=== PATIENT | female | born 2000 | race Caucasian/White ===

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

== ENCOUNTER 2020-02-06 11:43 | Emergency (ER) | payer OTHER ==
--- NOTE | 2020-02-06 12:14 | ED ---
General Adult HPI - General Chief complaint: Psychiatric Symptoms Stated complaint: Depressed Time Seen by Provider: 02/06/20 11:52 Source: patient, RN notes reviewed, old records reviewed Mode of arrival: ambulatory Limitations: no limitations - History of Present Illness Initial comments: 19-year-old female presenting with depression and anxiety. She had recent loss of her mother in December and has been past with caring for her younger brothers. She has had increased depression since this time as well as anxiety. She called her primary care physician who recommended she present to the emergency department for evaluation. She is not suicidal. She is not homicidal. She is struggling with this recent loss. No attempts at self-harm. - Related Data Home Medications Medication Instructions Recorded Confirmed FLUoxetine HCL [PROzac] 20 mg PO HS 09/29/14 02/06/20 metFORMIN HCL ER [Glucophage Xr] 500 mg PO HS 01/02/19 02/06/20 Previous Rx's Medication Instructions Recorded ALPRAZolam [Xanax] 0.5 mg PO BID PRN #6 tablet 02/06/20 Allergies Allergy/AdvReac Type Severity Reaction Status Date / Time sertraline HCl [From Zoloft] Allergy Rash/Hives/ Verified 02/06/20 12:45 SOB Review of Systems ROS Statement: Those systems with pertinent positive or pertinent negative responses have been documented in the HPI. ROS Other: All systems not noted in ROS Statement are negative. Past Medical History Past Medical History: Asthma, GERD/Reflux, Sleep Apnea/CPAP/BIPAP Additional Past Medical History / Comment(s): bladder cyst -polycystic ovarian syndrome-ON METFORMIN History of Any Multi-Drug Resistant Organisms: MRSA Date of last positivie culture/infection: 2012 MDRO Source:: right leg Past Surgical History: Adenoidectomy, Tonsillectomy Additional Past Surgical History / Comment(s): ovarian cyst, pain procedures Past Anesthesia/Blood Transfusion Reactions: Postoperative Nausea & Vomiting (PONV) Past Psychological History: ADD/ADHD, Anxiety, Depression Smoking Status: Never smoker Past Alcohol Use History: None Reported Past Drug Use History: None Reported - Past Family History Father Family Medical History: Diabetes Mellitus, Eye Disorder, Hyperlipidemia Mother Family Medical History: Asthma, Hypertension, Pneumonia, Thyroid Disorder Additional Family Medical History / Comment(s): Anxiety, depression Brother(s) Family Medical History: Asthma Additional Family Medical History / Comment(s): 2 brothers with asthma General Exam Limitations: no limitations General appearance: alert, in no apparent distress Head exam: Present: atraumatic, normocephalic Eye exam: Present: normal appearance, PERRL ENT exam: Present: normal exam Neck exam: Present: normal inspection. Absent: tenderness, meningismus Respiratory exam: Present: normal lung sounds bilaterally. Absent: respiratory distress, wheezes Cardiovascular Exam: Present: regular rate, normal rhythm GI/Abdominal exam: Present: soft. Absent: distended, tenderness Extremities exam: Present: normal inspection, normal capillary refill Neurological exam: Present: alert, oriented X3, CN II-XII intact. Absent: motor sensory deficit Psychiatric exam: Present: depressed, flat affect. Absent: suicidal ideation Skin exam: Present: warm, dry, intact Course Vital Signs 02/06/20 02/06/20 11:48 13:24 Temperature 98.5 F Pulse Rate 98 Respiratory 16 18 Rate Blood Pressure 145/79 O2 Sat by Pulse 100 Oximetry Medical Decision Making - Medical Decision Making 19-year-old with anxiety, depression after recent loss. I did offer EPS evaluation, patient requests resources and some medication to help her anxiety. She is not suicidal. She's given resources in the emergency department for outpatient follow-up as well as a short course of anti-anxiety medication. She does have follow-up with her primary care physician and will return with worsen ing or changing symptoms. - Lab Data Lab Results 02/06/20 Range/Units 12:25 Urine Opiates Screen Not Detected (NotDetected) Ur Oxycodone Screen Not Detected (NotDetected) Urine Methadone Screen Not Detected (NotDetected) Ur Propoxyphene Screen Not Detected (NotDetected) Ur Barbiturates Screen Not Detected (NotDetected) U Tricyclic Antidepress Not Detected (NotDetected) Ur Phencyclidine Scrn Not Detected (NotDetected) Ur Amphetamines Screen Not Detected (NotDetected) U Methamphetamines Scrn Not Detected (NotDetected) U Benzodiazepines Scrn Not Detected (NotDetected) Urine Cocaine Screen Not Detected (NotDetected) U Marijuana (THC) Screen Not Detected (NotDetected) Disposition Clinical Impression: Acute anxiety, Depression, Adjustment disorder Disposition: HOME SELF-CARE Condition: Fair Instructions (If sedation given, give patient instructions): Anxiety (ED), Stress (ED) Additional Instructions: Please follow up with mobile crisis, please return to the emergency department with worsening or changing symptoms. Prescriptions: ALPRAZolam [Xanax] 0.5 mg PO BID PRN #6 tablet PRN Reason: Anxiety Is patient prescribed a controlled substance at d/c from ED?: No Referrals: Adama Valles MD [Primary Care Provider] - 1-2 days Time of Disposition: 14:46
[2020-02-06 13:01] LABS: Amphetamine Screen,Urine Not Detected (NotDetected); Barbiturate Screen,Urine Not Detected (NotDetected); Benzodiazepines Screen,Urine Not Detected (NotDetected); Cocaine Screen,Urine Not Detected (NotDetected); Methadone Screen, Urine Not Detected (NotDetected); Opiate Screen,Urine Not Detected (NotDetected); Oxycodone Screen, Urine Not Detected (NotDetected); Phencyclidine Screen,Urine Not Detected (NotDetected); Tricyclic Antidepressant,Urine Not Detected (NotDetected); Urn Cannabinoid Scrn Not Detected (NotDetected)
[2020-02-06 13:25] VITALS: RESP 18
[2020-02-06 15:37] VITALS: BP 138/79; PULSE 89; TEMP 97.9
== END 2020-02-06 15:30 | disposition home or self-care (01) ==
LOC: EC 11:43
DX: F43.22 Adjustment disorder with anxiety (principal); F32.9 Major depressive disorder, single episode, unspecified; E28.2 Polycystic ovarian syndrome; G47.30 Sleep apnea, unspecified; Z79.84 Long term (current) use of oral hypoglycemic drugs; Z79.899 Other long term (current) drug therapy; Z88.8 Allergy status to other drugs, medicaments and biological substances; Z99.89 Dependence on other enabling machines and devices; Z98.890 Other specified postprocedural states; Z86.14 Personal history of Methicillin resistant Staphylococcus aureus infection
CPT/HCPCS: 80306; 82075; 99284

== ENCOUNTER 2020-03-20 12:58 | Emergency (ER) | payer OTHER ==
[2020-03-20] MEDS ORDERED: MAG HYDROX/AL HYDROX/SIMETH 30 ML, HYOSCYAMINE ELIXIR 10 ML PO STA ×2 (13:37)
[2020-03-20] MEDS ORDERED: SODIUM CHLORIDE 0.9% 500 ML 500 ML IV STA (13:37)
[2020-03-20] MEDS ORDERED: FAMOTIDINE 20 MG/2 ML VIAL IV STA (13:37)
[2020-03-20] MEDS ORDERED: SODIUM CHLORIDE 0.9% 1,000 ML IV STA (13:37)
[2020-03-20] MEDS ORDERED: METOCLOPRAMIDE 5 MG/ML 2 ML VIAL IVP STA (13:37)
[2020-03-20] MEDS ORDERED: diphenhydrAMINE 50 MG/ML 1 ML VIAL IVP STA (13:37)
--- NOTE | 2020-03-20 14:10 | ED ---
General Adult HPI - General Chief complaint: Nausea/Vomiting/Diarrhea Stated complaint: NVD Time Seen by Provider: 03/20/20 13:17 Source: patient, RN notes reviewed Mode of arrival: ambulatory Limitations: no limitations - History of Present Illness Initial comments: 19-year-old female presents emergency Department with chief complaint of abdominal discomfort, nausea or diarrhea. Patient states been sick for last week she has ongoing GERD symptoms in which she only takes Tums for. Patient states she used to be on omeprazole but discontinued a while back. Patient denies any chance . Denies any dysuria she states the diarrhea is very mild no melena hematochezia. Denies fevers or chills she states she has some burning sensation in her upper abdomen worse when she can waking up in the morning. - Related Data Home Medications Medication Instructions Recorded Confirmed FLUoxetine HCL [PROzac] 20 mg PO HS 09/29/02/06/20 metFORMIN HCL ER [Glucophage Xr] 500 mg PO HS 01/02/19 02/06/20 Previous Rx's Medication Instructions Recorded ALPRAZolam [Xanax] 0.5 mg PO BID PRN #6 tablet 02/06/20 Omeprazole [PriLOSEC] 40 mg PO DAILY #14 cap 03/20/20 Ondansetron Odt [Zofran Odt] 4 mg PO Q8HR PRN #10 tab 03/20/20 Allergies Allergy/AdvReac Type Severity Reaction Status Date / Time sertraline HCl [From Zoloft] Allergy Rash/Hives/ Verified 03/20/20 13:14 SOB Review of Systems ROS Statement: Those systems with pertinent positive or pertinent negative responses have been documented in the HPI. ROS Other: All systems not noted in ROS Statement are negative. Past Medical History Past Medical History: Asthma, GERD/Reflux, Sleep Apnea/CPAP/BIPAP Additional Past Medical History / Comment(s): bladder cyst -polycystic ovarian syndrome-ON METFORMIN, History of Any Multi-Drug Resistant Organisms: MRSA Date of last positivie culture/infection: 2012 MDRO Source:: right leg Past Surgical History: Adenoidectomy, Tonsillectomy Additional Past Surgical History / Comment(s): ovarian cyst, pain procedures, Past Anesthesia/Blood Transfusion Reactions: Postoperative Nausea & Vomiting (PONV) Past Psychological History: ADD/ADHD, Anxiety, Depression Smoking Status: Never smoker Past Alcohol Use History: None Reported Past Drug Use History: None Reported - Past Family History Father Family Medical History: Diabetes Mellitus, Eye Disorder, Hyperlipidemia Mother Family Medical History: Asthma, Hypertension, Pneumonia, Thyroid Disorder Additional Family Medical History / Comment(s): Anxiety, depression Brother(s) Family Medical History: Asthma Additional Family Medical History / Comment(s): 2 brothers with asthma General Exam Limitations: no limitations General appearance: alert, in no apparent distress Head exam: Present: atraumatic, normocephalic, normal inspection Eye exam: Present: normal appearance, PERRL, EOMI. Absent: scleral icterus, conjunctival injection, periorbital swelling ENT exam: Present: normal exam, normal oropharynx, mucous membranes moist Neck exam: Present: normal inspection, full ROM. Absent: tenderness, meningismus, lymphadenopathy Respiratory exam: Present: normal lung sounds bilaterally. Absent: respiratory distress, wheezes, rales, rhonchi, stridor Cardiovascular Exam: Present: regular rate, normal rhythm, normal heart sounds. Absent: systolic murmur, diastolic murmur, rubs, gallop, clicks GI/Abdominal exam: Present: soft, tenderness (Mild epigastric), normal bowel sounds. Absent: distended, guarding, rebound, rigid Back exam: Absent: CVA tenderness (R), CVA tenderness (L) Neurological exam: Present: alert, oriented X3 Skin exam: Present: warm, dry, intact, normal color. Absent: rash Course Vital Signs 03/20/20 13:10 Temperature 98.9 F Pulse Rate 81 Respiratory 18 Rate Blood Pressure 144/100 O2 Sat by Pulse 98 Oximetry Medical Decision Making - Medical Decision Making 19-year-old female presented for GERD, nausea abdominal pain. Patient labs unremarkable. Patient is improved after antiemetics and GI cocktail. Patient discharged in stable condition return parameters were discussed. - Lab Data Result diagrams: 03/20/20 14:07 03/20/20 14:07 Lab Results 03/20/20 03/20/20 03/20/20 Range/Units 14:07 14:07 14:07 WBC 9.3 (4.0-11.0) k/uL RBC 4.33 (3.80-5.40) m/uL Hgb 13.1 (11.4-16.0) gm/dL Hct 39.9 (34.0-46.0) % MCV 92.1 (80.0-100.0) fL MCH 30.2 (25.0-35.0) pg MCHC 32.8 (31.0-37.0) g/dL RDW 13.8 (11.5-15.5) % Plt Count 361 (150-450) k/uL Neutrophils % 81 % Lymphocytes % 13 % Monocytes % 3 % Eosinophils % 2 % Basophils % 1 % Neutrophils # 7.6 (1.3-7.7) k/uL Lymphocytes # 1.2 (1.0-4.8) k/uL Monocytes # 0.3 (0-1.0) k/uL Eosinophils # 0.2 (0-0.7) k/uL Basophils # 0.1 (0-0.2) k/uL Sodium (137-145) mmol/L Potassium (3.5-5.1) mmol/L Chloride (98-107) mmol/L Carbon Dioxide (22-30) mmol/L Anion Gap mmol/L BUN (7-17) mg/dL Creatinine (0.52-1.04) mg/dL Est GFR (CKD-EPI)AfAm (>60 ml/min/1.73 sqM) Est GFR (CKD-EPI)NonAf (>60 ml/min/1.73 sqM) Glucose (74-99) mg/dL Calcium (8.4-10.2) mg/dL Total Bilirubin (0.2-1.3) mg/dL AST (14-36) U/L ALT (4-34) U/L Alkaline Phosphatase (38-126) U/L Total Protein (6.3-8.2) g/dL Albumin (3.5-5.0) g/dL Lipase (23-300) U/L Urine Color Yellow Urine Appearance Clear (Clear) Urine pH 5.5 (5.0-8.0) Ur Specific [place] 1.022 (1.001-1.035) Urine Protein Negative (Negative) Urine Glucose (UA) Negative (Negative) Urine Ketones Negative (Negative) Urine Blood Negative (Negative) Urine Nitrite Negative (Negative) Urine Bilirubin Negative (Negative) Urine Urobilinogen <2.0 (<2.0) mg/dL Ur Leukocyte Esterase Negative (Negative) Urine HCG, Qual Not Detected (Not Detectd) 03/20/20 Range/Units 14:07 WBC (4.0-11.0) k/uL RBC (3.80-5.40) m/uL Hgb (11.4-16.0) gm/dL Hct (34.0-46.0) % MCV (80.0-100.0) fL MCH (25.0-35.0) pg MCHC (31.0-37.0) g/dL RDW (11.5-15.5) % Plt Count (150-450) k/uL Neutrophils % % Lymphocytes % % Monocytes % % Eosinophils % % Basophils % % Neutrophils # (1.3-7.7) k/uL Lymphocytes # (1.0-4.8) k/uL Monocytes # (0-1.0) k/uL Eosinophils # (0-0.7) k/uL Basophils # (0-0.2) k/uL Sodium 139 (137-145) mmol/L Potassium 4.9 (3.5-5.1) mmol/L Chloride 108 H (98-107) mmol/L Carbon Dioxide 24 (22-30) mmol/L Anion Gap 7 mmol/L BUN 10 (7-17) mg/dL Creatinine 0.49 L (0.52-1.04) mg/dL Est GFR (CKD-EPI)AfAm >90 (>60 ml/min/1.73 sqM) Est GFR (CKD-EPI)NonAf >90 (>60 ml/min/1.73 sqM) Glucose 86 (74-99) mg/dL Calcium 9.1 (8.4-10.2) mg/dL Total Bilirubin 0.7 (0.2-1.3) mg/dL AST 40 H (14-36) U/L ALT 38 H (4-34) U/L Alkaline Phosphatase 68 (38-126) U/L Total Protein 7.3 (6.3-8.2) g/dL Albumin 4.1 (3.5-5.0) g/dL Lipase 96 (23-300) U/L Urine Color Urine Appearance (Clear) Urine pH (5.0-8.0) Ur Specific [place] (1.001-1.035) Urine Protein (Negative) Urine Glucose (UA) (Negative) Urine Ketones (Negative) Urine Blood (Negative) Urine Nitrite (Negative) Urine Bilirubin (Negative) Urine Urobilinogen (<2.0) mg/dL Ur Leukocyte Esterase (Negative) Urine HCG, Qual (Not Detectd) Disposition Clinical Impression: GERD (gastroesophageal reflux disease), Abdominal pain Disposition: HOME SELF-CARE Condition: Stable Instructions (If sedation given, give patient instructions): Abdominal Pain (ED) Additional Instructions: Please return to the Emergency Department if symptoms worsen or any other con cerns. Prescriptions: Omeprazole [PriLOSEC] 40 mg PO DAILY #14 cap Ondansetron Odt [Zofran Odt] 4 mg PO Q8HR PRN #10 tab PRN Reason: Nausea Is patient prescribed a controlled substance at d/c from ED?: No Referrals: Adama Valles MD [Primary Care Provider] - 1-2 days Time of Disposition: 14:53
[2020-03-20 14:22] LABS: Basophils # (A) 0.1 k/uL (0-0.2); Basophils % (A) 1 %; Eosinophils # (A) 0.2 k/uL (0-0.7); Eosinophils % (A) 2 %; HCT 39.9 % (34.0-46.0); HGB 13.1 gm/dL (11.4-16.0); Lymphocytes # (A) 1.2 k/uL (1.0-4.8); Lymphocytes % (A) 13 %; MCH 30.2 pg (25.0-35.0); MCHC 32.8 g/dL (31.0-37.0); MCV 92.1 fL (80.0-100.0); Monocytes # (A) 0.3 k/uL (0-1.0); Monocytes % (A) 3 %; Neutrophils # (A) 7.6 k/uL (1.3-7.7); Neutrophils % (A) 81 %; Platelet Count 361 k/uL (150-450); RBC 4.33 m/uL (3.80-5.40); RDW 13.8 % (11.5-15.5); WBC 9.3 k/uL (4.0-11.0)
[2020-03-20 14:29] LABS: Appearance,Urine Clear (Clear); Bilirubin,Urine Negative (Negative); Blood,Urine Negative (Negative); Color,Urine Yellow; Glucose,Urine (UA) Negative (Negative); Ketones,Urine Negative (Negative); Leukocyte Esterase,Urine Negative (Negative); Nitrite,Urine Negative (Negative); PH, Urine 5.5 (5.0-8.0); Protein,Urine Negative (Negative); Specific Gravity,Urine 1.022 (1.001-1.035); Urobilinogen,Urine <2.0 mg/dL (<2.0)
[2020-03-20 14:33] LABS: ALT 38 U/L (4-34); AST 40 U/L (14-36); African American GFR (CKD) >90 (>60 ml/min/1.73 sqM); Albumin 4.1 g/dL (3.5-5.0); Alkaline Phosphatase 68 U/L (38-126); Anion Gap 7 mmol/L; Blood Urea Nitrogen 10 mg/dL (7-17); Calcium 9.1 mg/dL (8.4-10.2); Carbon Dioxide 24 mmol/L (22-30); Chloride 108 mmol/L (98-107); Glucose 86 mg/dL (74-99); Non-African American GFR(CKD) >90 (>60 ml/min/1.73 sqM); Sodium 139 mmol/L (137-145); Total Bilirubin 0.7 mg/dL (0.2-1.3); Total Protein 7.3 g/dL (6.3-8.2)
[2020-03-20 14:44] LABS: Potassium 4.9 mmol/L (3.5-5.1)
[2020-03-20 15:48] VITALS: BP 139/90; PULSE 78; RESP 16; TEMP 98
== END 2020-03-20 15:48 | disposition home or self-care (01) ==
LOC: EC 12:58
DX: K21.9 Gastro-esophageal reflux disease without esophagitis (principal); R10.9 Unspecified abdominal pain; E28.2 Polycystic ovarian syndrome; G47.30 Sleep apnea, unspecified; F41.9 Anxiety disorder, unspecified; F32.9 Major depressive disorder, single episode, unspecified; Z79.899 Other long term (current) drug therapy; Z79.84 Long term (current) use of oral hypoglycemic drugs; Z88.8 Allergy status to other drugs, medicaments and biological substances; Z99.89 Dependence on other enabling machines and devices
CPT/HCPCS: 36415; 80053; 83690; 85025; 81003; 81025; 99284; 96374; 96375 ×2; 96361; J1200; J2765

== ENCOUNTER 2021-02-02 21:59 | Emergency (ER) | payer OTHER ==
[2021-02-02 22:33] VITALS: BP 127/81; PULSE 89; RESP 18; TEMP 98.5
[2021-02-03] MEDS ORDERED: SULFAMETH-TMP DS STARTER PACK 2 TAB BTL PO STA (00:52)
[2021-02-03] MEDS ORDERED: CEPHALEXIN 500MG STARTER PACK 4 CAP BTL PO STA (00:52)
--- NOTE | 2021-02-03 00:54 | ED ---
General Adult HPI - General Chief complaint: Skin/Abscess/Foreign Body Stated complaint: abscess Time Seen by Provider: 02/02/21 23:51 Source: patient Mode of arrival: ambulatory Limitations: no limitations - History of Present Illness Initial comments: 20-year-old female presents to the emergency room for a chief complaint of abscess. Patient reports she has had an abscess on the left inner thigh. States she noticed it yesterday. Patient states she has had these several times before. Patient thinks she needs incision and drainage. Patient denies fevers or chills.Patient has no other complaints at this time including shortness of breath, chest pain, abdominal pain, nausea or vomiting, headache, or visual changes. - Related Data Home Medications Medication Instructions Recorded Confirmed FLUoxetine HCL [PROzac] 20 mg PO HS 09/29/14 02/06/20 metFORMIN HCL ER [Glucophage XR] 500 mg PO HS 01/02/19 02/06/20 Previous Rx's Medication Instructions Recorded ALPRAZolam [Xanax] 0.5 mg PO BID PRN #6 tablet 02/06/20 Omeprazole [PriLOSEC] 40 mg PO DAILY #14 cap 03/20/20 Ondansetron Odt [Zofran Odt] 4 mg PO Q8HR PRN #10 tab 03/20/20 Cephalexin [Keflex] 500 mg PO Q6HR 10 Days #40 cap 02/03/21 Sulfamethox-Tmp 800-160Mg [Bactrim 1 tab PO Q12HR #20 tab 02/03/21 DS 800-160 mg] Allergies Allergy/AdvReac Type Severity Reaction Status Date / Time sertraline HCl [From Zoloft] Allergy Rash/Hives/ Verified 03/20/20 13:14 SOB Review of Systems ROS Statement: Those systems with pertinent positive or pertinent negative responses have been documented in the HPI. ROS Other: All systems not noted in ROS Statement are negative. Past Medical History Past Medical History: Asthma, GERD/Reflux, Sleep Apnea/CPAP/BIPAP Additional Past Medical History / Comment(s): bladder cyst -polycystic ovarian syndrome-ON METFORMIN, History of Any Multi-Drug Resistant Organisms: MRSA Date of last positivie culture/infection: 2012 MDRO Source:: right leg Past Surgical History: Adenoidectomy, Tonsillectomy Additional Past Surgical History / Comment(s): ovarian cyst, pain procedures, Past Anesthesia/Blood Transfusion Reactions: Postoperative Nausea & Vomiting (PONV) Past Psychological History: ADD/ADHD, Anxiety, Depression Smoking Status: Vaper Past Alcohol Use History: None Reported Past Drug Use History: None Reported - Past Family History Father Family Medical History: Diabetes Mellitus, Eye Disorder, Hyperlipidemia Mother Family Medical History: Asthma, Hypertension, Pneumonia, Thyroid Disorder Additional Family Medical History / Comment(s): Anxiety, depression Brother(s) Family Medical History: Asthma Additional Family Medical History / Comment(s): 2 brothers with asthma General Exam Limitations: no limitations General appearance: alert Head exam: Present: atraumatic Eye exam: Present: normal appearance, PERRL, EOMI. Absent: scleral icterus ENT exam: Present: normal exam, mucous membranes moist Neck exam: Present: normal inspection, full ROM Respiratory exam: Absent: respiratory distress Extremities exam: Present: other (She has a 2 cm x 2 cm abscess noted on the left inner thigh with minimal surrounding erythema.) Course Vital Signs 02/02/21 22:29 Temperature 98.5 F Pulse Rate 89 Respiratory 18 Rate Blood Pressure 127/81 O2 Sat by Pulse 96 Oximetry Procedures - Incision & Drainage Consent Obtained: verbal consent, written consent Indication: Abscess Site: lower extremity Size (cm): 2 I&D Cleaning Method: Alcohol Wipe Scalpel Used: #11 I&D Drainage Obtained: Pus Patient Tolerated Procedure: well, no complications Medical Decision Making - Medical Decision Making Incision and drainage was performed. Purulent material expelled. She'll be started on Keflex and Bactrim. Patient will do warm compresses and sitz baths. She will return if symptoms have not improved within 24-48 hours. She will return for any other worsening symptoms. She'll otherwise follow-up with her doctor. Disposition Clinical Impression: Abscess Disposition: HOME SELF-CARE Condition: Good Instructions (If sedation given, give patient instructions): Abscess (ED) Additional Instructions: Please take antibiotics as directed. Do warm baths or compresses. Follow-up with your doctor in one to 2 days. Return to the emergency room for any worsening symptoms. Prescriptions: Sulfamethox-Tmp 800-160Mg [Bactrim DS 800-160 mg] 1 tab PO Q12HR #20 tab Cephalexin [Keflex] 500 mg PO Q6HR 10 Days #40 cap Is patient prescribed a controlled substance at d/c from ED?: No Referrals: Adama Valles MD [Primary Care Provider] - 1-2 days Time of Disposition: 00:52
== END 2021-02-03 01:07 | disposition home or self-care (01) ==
LOC: EC 21:59
DX: L02.416 Cutaneous abscess of left lower limb (principal); J45.909 Unspecified asthma, uncomplicated; K21.9 Gastro-esophageal reflux disease without esophagitis; E28.2 Polycystic ovarian syndrome; F90.9 Attention-deficit hyperactivity disorder, unspecified type; F41.9 Anxiety disorder, unspecified; F32.9 Major depressive disorder, single episode, unspecified; F17.290 Nicotine dependence, other tobacco product, uncomplicated; Z79.84 Long term (current) use of oral hypoglycemic drugs; Z88.1 Allergy status to other antibiotic agents; Z90.89 Acquired absence of other organs
CPT/HCPCS: 10060; 99282

== ENCOUNTER 2021-04-13 10:49 | Emergency (ER) | payer OTHER ==
[2021-04-13 10:55] VITALS: BP 133/90; PULSE 97; RESP 20; TEMP 98.8
[2021-04-13] MEDS ORDERED: ONDANSETRON 4 MG/2 ML VIAL IVP STA (11:25)
[2021-04-13 12:05] LABS: Basophils % (A) 0 %; Eosinophils # (A) 0.2 k/uL (0-0.7); Eosinophils % (A) 1 %; HCT 42.8 % (34.0-46.0); HGB 14.8 gm/dL (11.4-16.0); Lymphocytes # (A) 1.4 k/uL (1.0-4.8); Lymphocytes % (A) 13 %; MCH 31.3 pg (25.0-35.0); MCHC 34.6 g/dL (31.0-37.0); MCV 90.3 fL (80.0-100.0); Mean Platelet Volume 7.6; Monocytes # (A) 0.4 k/uL (0-1.0); Monocytes % (A) 4 %; Neutrophils # (A) 8.3 k/uL (1.3-7.7); Neutrophils % (A) 80 %; Platelet Count 391 k/uL (150-450); RBC 4.74 m/uL (3.80-5.40); RDW 12.7 % (11.5-15.5); WBC 10.4 k/uL (4.0-11.0)
[2021-04-13 12:20] LABS: Appearance,Urine Cloudy (Clear); Bacteria,Urine Rare /hpf; Bilirubin,Urine 1+ (Negative); Blood,Urine Negative (Negative); Color,Urine Yellow; Glucose,Urine (UA) Negative (Negative); Hyaline Casts,Urine 11 /lpf (0-2); Ketones,Urine 1+ (Negative); Leukocyte Esterase,Urine Negative (Negative); Mucus,Urine Many /hpf; Nitrite,Urine Negative (Negative); Protein,Urine 1+ (Negative); RBC,Urine 2 /hpf (0-5); Specific Gravity,Urine 1.032 (1.001-1.035); Squamous Epithelial Cell,Urine 4 /hpf (0-4); WBC,Urine 2 /hpf (0-5)
[2021-04-13 12:35] LABS: ALT 42 U/L (4-34); AST 30 U/L (14-36); African American GFR (CKD) >90 (>60 ml/min/1.73 sqM); Albumin 4.8 g/dL (3.5-5.0); Alkaline Phosphatase 99 U/L (38-126); Anion Gap 14 mmol/L; Blood Urea Nitrogen 12 mg/dL (7-17); Calcium 10.3 mg/dL (8.4-10.2); Carbon Dioxide 21 mmol/L (22-30); Chloride 103 mmol/L (98-107); Glucose 98 mg/dL (74-99); Lipase 94 U/L (23-300); Non-African American GFR(CKD) >90 (>60 ml/min/1.73 sqM); Potassium 3.9 mmol/L (3.5-5.1); Sodium 138 mmol/L (137-145); Total Bilirubin 0.9 mg/dL (0.2-1.3); Total Protein 8.6 g/dL (6.3-8.2)
--- NOTE | 2021-04-13 13:40 | ED ---
General Adult HPI - General Chief complaint: Abdominal Pain Stated complaint: abd pain/vomiting Time Seen by Provider: 04/13/21 10:57 Source: patient, RN notes reviewed Mode of arrival: ambulatory Limitations: no limitations - History of Present Illness Initial comments: 20-year-old female presents to the emergency room for a chief complaint of nausea. Patient states that she has had nausea for 3 days now. States that she feels like she can't keep much down at home. States that she did try to come here yesterday but it was busy so she left. Patient states sometimes her upper abdomen feels like it is" but she denies pain. Denies any lower abdominal pain. Denies fevers or chills. She states this has happened before. States she she use to vomit every day when she woke up. Patient has no other complaints at this time including shortness of breath, chest pain, abdominal pain, headache, or visual changes. - Related Data Home Medications Medication Instructions Recorded Confirmed FLUoxetine HCL [PROzac] 20 mg PO HS 09/29/14 02/06/20 metFORMIN HCL ER [Glucophage XR] 500 mg PO HS 01/02/19 02/06/20 Previous Rx's Medication Instructions Recorded ALPRAZolam [Xanax] 0.5 mg PO BID PRN #6 tablet 02/06/20 Omeprazole [PriLOSEC] 40 mg PO DAILY #14 cap 03/20/20 Ondansetron Odt [Zofran Odt] 4 mg PO Q8HR PRN #10 tab 03/20/20 Cephalexin [Keflex] 500 mg PO Q6HR 10 Days #40 cap 02/03/21 Sulfamethox-Tmp 800-160Mg [Bactrim 1 tab PO Q12HR #20 tab 02/03/21 DS 800-160 mg] Ondansetron [Zofran ODT] 4 mg PO Q8HR PRN #15 tab 04/13/21 Allergies Allergy/AdvReac Type Severity Reaction Status Date / Time sertraline HCl [From Zoloft] Allergy Rash/Hives/ Verified 04/13/21 10:55 SOB Review of Systems ROS Statement: Those systems with pertinent positive or pertinent negative responses have been documented in the HPI. ROS Other: All systems not noted in ROS Statement are negative. Past Medical History Past Medical History: Asthma, GERD/Reflux, Sleep Apnea/CPAP/BIPAP Additional Past Medical History / Comment(s): bladder cyst -polycystic ovarian syndrome-ON METFORMIN, History of Any Multi-Drug Resistant Organisms: MRSA Date of last positivie culture/infection: 2012 MDRO Source:: right leg Past Surgical History: Adenoidectomy, Cholecystectomy, Tonsillectomy Additional Past Surgical History / Comment(s): ovarian cyst, pain procedures, Past Anesthesia/Blood Transfusion Reactions: Postoperative Nausea & Vomiting (PONV) Past Psychological History: ADD/ADHD, Anxiety, Depression Smoking Status: Vaper Past Alcohol Use History: None Reported Past Drug Use History: Marijuana - Past Family History Father Family Medical History: Diabetes Mellitus, Eye Disorder, Hyperlipidemia Mother Family Medical History: Asthma, Hypertension, Pneumonia, Thyroid Disorder Additional Family Medical History / Comment(s): Anxiety, depression Brother(s) Family Medical History: Asthma Additional Family Medical History / Comment(s): 2 brothers with asthma General Exam Limitations: no limitations General appearance: alert, in no apparent distress Head exam: Present: atraumatic Eye exam: Present: normal appearance, PERRL, EOMI. Absent: scleral icterus, conjunctival injection ENT exam: Present: normal exam, mucous membranes moist Neck exam: Present: normal inspection, full ROM. Absent: tenderness Respiratory exam: Present: normal lung sounds bilaterally. Absent: respiratory distress, wheezes Cardiovascular Exam: Present: regular rate, normal rhythm, normal heart sounds GI/Abdominal exam: Present: soft, normal bowel sounds. Absent: distended, tenderness Neurological exam: Present: alert Course Vital Signs 04/13/21 10:53 Temperature 98.8 F Pulse Rate 97 Respiratory 20 Rate Blood Pressure 133/90 O2 Sat by Pulse 97 Oximetry Medical Decision Making - Medical Decision Making Vitals are stable. CBC CMP unremarkable. Urinalysis did not show any evidence of infection. No upper abdominal or lower abdominal tenderness. History of cholecystectomy. Patient reevaluated, nausea has improved. She is not having any pain at this time. Abdomen is soft on repeat abdominal exam. Patient is tolerating oral intake. At this time patient will be discharged home with Zofran. Will return here for any worsening symptoms. - Lab Data Result diagrams: 04/13/21 11:40 04/13/21 11:40 Lab Results 04/13/21 04/13/21 04/13/21 Range/Units 11:40 11:40 11:40 WBC 10.4 (4.0-11.0) k/uL RBC 4.74 (3.80-5.40) m/uL Hgb 14.8 (11.4-16.0) gm/dL Hct 42.8 (34.0-46.0) % MCV 90.3 (80.0-100.0) fL MCH 31.3 (25.0-35.0) pg MCHC 34.6 (31.0-37.0) g/dL RDW 12.7 (11.5-15.5) % Plt Count 391 (150-450) k/uL MPV 7.6 Neutrophils % 80 % Lymphocytes % 13 % Monocytes % 4 % Eosinophils % 1 % Basophils % 0 % Neutrophils # 8.3 H (1.3-7.7) k/uL Lymphocytes # 1.4 (1.0-4.8) k/uL Monocytes # 0.4 (0-1.0) k/uL Eosinophils # 0.2 (0-0.7) k/uL Basophils # 0.0 (0-0.2) k/uL Sodium (137-145) mmol/L Potassium (3.5-5.1) mmol/L Chloride (98-107) mmol/L Carbon Dioxide (22-30) mmol/L Anion Gap mmol/L BUN (7-17) mg/dL Creatinine (0.52-1.04) mg/dL Est GFR (CKD-EPI)AfAm (>60 ml/min/1.73 sqM) Est GFR (CKD-EPI)NonAf (>60 ml/min/1.73 sqM) Glucose (74-99) mg/dL Calcium (8.4-10.2) mg/dL Total Bilirubin (0.2-1.3) mg/dL AST (14-36) U/L ALT (4-34) U/L Alkaline Phosphatase (38-126) U/L Total Protein (6.3-8.2) g/dL Albumin (3.5-5.0) g/dL Lipase (23-300) U/L Urine Color Yellow Urine Appearance Cloudy H (Clear) Urine pH 6.0 (5.0-8.0) Ur Specific [place] 1.032 (1.001-1.035) Urine Protein 1+ H (Negative) Urine Glucose (UA) Negative (Negative) Urine Ketones 1+ H (Negative) Urine Blood Negative (Negative) Urine Nitrite Negative (Negative) Urine Bilirubin 1+ H (Negative) Urine Urobilinogen 2.0 (<2.0) mg/dL Ur Leukocyte Esterase Negative (Negative) Urine RBC 2 (0-5) /hpf Urine WBC 2 (0-5) /hpf Ur Squamous Epith Cells 4 (0-4) /hpf Urine Bacteria Rare H (None) /hpf Hyaline Casts 11 H (0-2) /lpf Urine Mucus Many H (None) /hpf Urine HCG, Qual Not Detected (Not Detectd) 04/13/21 Range/Units 11:40 WBC (4.0-11.0) k/uL RBC (3.80-5.40) m/uL Hgb (11.4-16.0) gm/dL Hct (34.0-46.0) % MCV (80.0-100.0) fL MCH (25.0-35.0) pg MCHC (31.0-37.0) g/dL RDW (11.5-15.5) % Plt Count (150-450) k/uL MPV Neutrophils % % Lymphocytes % % Monocytes % % Eosinophils % % Basophils % % Neutrophils # (1.3-7.7) k/uL Lymphocytes # (1.0-4.8) k/uL Monocytes # (0-1.0) k/uL Eosinophils # (0-0.7) k/uL Basophils # (0-0.2) k/uL Sodium 138 (137-145) mmol/L Potassium 3.9 (3.5-5.1) mmol/L Chloride 103 (98-107) mmol/L Carbon Dioxide 21 L (22-30) mmol/L Anion Gap 14 mmol/L BUN 12 (7-17) mg/dL Creatinine 0.69 (0.52-1.04) mg/dL Est GFR (CKD-EPI)AfAm >90 (>60 ml/min/1.73 sqM) Est GFR (CKD-EPI)NonAf >90 (>60 ml/min/1.73 sqM) Glucose 98 (74-99) mg/dL Calcium 10.3 H (8.4-10.2) mg/dL Total Bilirubin 0.9 (0.2-1.3) mg/dL AST 30 (14-36) U/L ALT 42 H (4-34) U/L Alkaline Phosphatase 99 (38-126) U/L Total Protein 8.6 H (6.3-8.2) g/dL Albumin 4.8 (3.5-5.0) g/dL Lipase 94 (23-300) U/L Urine Color Urine Appearance (Clear) Urine pH (5.0-8.0) Ur Specific [place] (1.001-1.035) Urine Protein (Negative) Urine Glucose (UA) (Negative) Urine Ketones (Negative) Urine Blood (Negative) Urine Nitrite (Negative) Urine Bilirubin (Negative) Urine Urobilinogen (<2.0) mg/dL Ur Leukocyte Esterase (Negative) Urine RBC (0-5) /hpf Urine WBC (0-5) /hpf Ur Squamous Epith Cells (0-4) /hpf Urine Bacteria (None) /hpf Hyaline Casts (0-2) /lpf Urine Mucus (None) /hpf Urine HCG, Qual (Not Detectd) Disposition Clinical Impression: Nausea Disposition: HOME SELF-CARE Condition: Good Instructions (If sedation given, give patient instructions): Acute Nausea and Vomiting (ED) Additional Instructions: Please take Zofran as needed for nausea. Please follow-up with your doctor in one to 2 days. Return to the emergency room for any worsening symptoms. Prescriptions: Ondansetron [Zofran ODT] 4 mg PO Q8HR PRN #15 tab PRN Reason: Nausea Is patient prescribed a controlled substance at d/c from ED?: No Referrals: Adama Valles MD [Primary Care Provider] - 1-2 days Time of Disposition: 13:37
== END 2021-04-13 13:51 | disposition home or self-care (01) ==
LOC: EC 10:49
DX: R11.0 Nausea (principal); J45.909 Unspecified asthma, uncomplicated; K21.9 Gastro-esophageal reflux disease without esophagitis; F41.9 Anxiety disorder, unspecified; F32.9 Major depressive disorder, single episode, unspecified; F90.9 Attention-deficit hyperactivity disorder, unspecified type; F17.290 Nicotine dependence, other tobacco product, uncomplicated; F12.90 Cannabis use, unspecified, uncomplicated; Z79.84 Long term (current) use of oral hypoglycemic drugs; Z90.49 Acquired absence of other specified parts of digestive tract; Z90.89 Acquired absence of other organs; Z79.899 Other long term (current) drug therapy
CPT/HCPCS: 99283; 96374; 36415; 80053; 83690; 85025; 81001; 81025; J2405

== ENCOUNTER 2023-02-10 22:03 | Emergency (ER) | payer OTHER ==
[2023-02-10 22:18] VITALS: TEMP 99
[2023-02-10] MEDS ORDERED: KETOROLAC 15 MG/ML 1 ML VIAL IM STA (22:46)
[2023-02-10] MEDS ORDERED: DEXAMETHASONE SOD PHOSPHATE 10 MG/ML 1 ML VIAL IM STA (22:46)
--- NOTE | 2023-02-10 23:09 | ED ---
General Adult HPI - General Chief complaint: Extremity Injury, Upper Stated complaint: Lt arm pain/numbness Time Seen by Provider: 02/10/23 22:22 Source: patient Mode of arrival: ambulatory Limitations: no limitations - History of Present Illness Initial comments: 22-year-old female presenting with chief complaint of pain numbness and tingling radiating down the left arm. Patient states that a few days ago she was coughing and felt a pop in her shoulder. She states that since then she has had pain radiating down from the shoulder. She takes Tylenol as needed. No pain in the neck. She has full range of motion. No chest pain or difficulty breathing. No other injury or trauma. - Related Data Home Medications Medication Instructions Recorded Confirmed FLUoxetine HCL [PROzac] 20 mg PO HS 09/29/14 02/06/20 metFORMIN HCL ER [Glucophage XR] 500 mg PO HS 01/02/19 02/06/20 Previous Rx's Medication Instructions Recorded ALPRAZolam [Xanax] 0.5 mg PO BID PRN #6 tablet 02/06/20 Omeprazole [PriLOSEC] 40 mg PO DAILY #14 cap 03/20/20 Ondansetron Odt [Zofran Odt] 4 mg PO Q8HR PRN #10 tab 03/20/20 Cephalexin [Keflex] 500 mg PO Q6HR 10 Days #40 cap 02/03/21 Sulfamethox-Tmp 800-160Mg [Bactrim 1 tab PO Q12HR #20 tab 02/03/21 DS 800-160 mg] Ondansetron [Zofran ODT] 4 mg PO Q8HR PRN #15 tab 04/13/21 Ibuprofen [Motrin] 600 mg PO Q6HR PRN #30 tab 02/11/23 methylPREDNISolone Dose Pack 4 mg PO DIRECTED #1 packet 02/11/23 [Medrol Dose Pack] Allergies Allergy/AdvReac Type Severity Reaction Status Date / Time sertraline HCl [From Zoloft] Allergy Rash/Hives/ Verified 02/10/23 22:19 SOB Review of Systems ROS Statement: Those systems with pertinent positive or pertinent negative responses have been documented in the HPI. ROS Other: All systems not noted in ROS Statement are negative. Past Medical History Past Medical History: Asthma, GERD/Reflux, Sleep Apnea/CPAP/BIPAP Additional Past Medical History / Comment(s): bladder cyst -polycystic ovarian syndrome-ON METFORMIN, History of Any Multi-Drug Resistant Organisms: MRSA Date of last positivie culture/infection: 2012 MDRO Source:: right leg Past Surgical History: Adenoidectomy, Cholecystectomy, Tonsillectomy Additional Past Surgical History / Comment(s): ovarian cyst, pain procedures, Past Anesthesia/Blood Transfusion Reactions: Postoperative Nausea & Vomiting (PONV) Past Psychological History: ADD/ADHD, Anxiety, Depression Smoking Status: Vaper Past Alcohol Use History: None Reported Past Drug Use History: Marijuana - Past Family History Father Family Medical History: Diabetes Mellitus, Eye Disorder, Hyperlipidemia Mother Family Medical History: Asthma, Hypertension, Pneumonia, Thyroid Disorder Additional Family Medical History / Comment(s): Anxiety, depression Brother(s) Family Medical History: Asthma Additional Family Medical History / Comment(s): 2 brothers with asthma General Exam Limitations: no limitations General appearance: alert, in no apparent distress Head exam: Present: atraumatic, normocephalic, normal inspection Eye exam: Present: normal appearance, EOMI. Absent: scleral icterus, periorbital swelling Neck exam: Present: normal inspection, full ROM. Absent: tenderness Respiratory exam: Present: normal lung sounds bilaterally. Absent: respiratory distress, wheezes, rales, rhonchi, stridor Cardiovascular Exam: Present: regular rate, normal rhythm, normal heart sounds. Absent: systolic murmur, diastolic murmur, rubs, gallop, clicks Left Shoulder Exam: Present: normal inspection, full ROM, tenderness Elbow exam: Present: normal inspection, full ROM. Absent: tenderness, swelling Neurological exam: Present: alert, oriented X3, CN II-XII intact Psychiatric exam: Present: normal affect, normal mood Skin exam: Present: warm, dry, intact, normal color. Absent: rash Course Vital Signs 02/10/23 02/11/23 22:15 00:36 Temperature 99.0 F Pulse Rate 71 70 Respiratory 18 19 Rate Blood Pressure 153/85 147/78 O2 Sat by Pulse 100 70 L Oximetry Medical Decision Making - Medical Decision Making Was pt. sent in by a medical professional or institution (, PA, [employer], urgent care, hospital, or retirement...) When possible be specific @ -No Did you speak to anyone other than the patient for history (EMS, parent, family, police, friend...)? What history was obtained from this source @ -No Did you review nursing and triage notes (agree or disagree)? Why? @ -I reviewed and agree with nursing and triage notes Were old charts reviewed (outside hosp., previous admission, EMS record, old EKG, old radiological studies, urgent care reports/EKG's, retirement records)? Report findings @ -No old charts were reviewed Differential Diagnosis (chest pain, altered mental status, abdominal pain women, abdominal pain men, vaginal bleeding, weakness, fever, dyspnea, syncope, headache, dizziness, GI bleed, back pain, seizure, CVA, palpatations, mental he alth, musculoskeletal)? @ -Differential Musculoskeletal Muscular strain, contusion, ligament sprain, fracture, arthritis, septic arthritis, bursitis, cellulitis, muscle spasm, nerve compression, DVT, arterial occlusion, herpes zoster, electrolyte abnormality, tumor.... This is not meant to be in all inclusive list EKG interpreted by me (3pts min.). @ -As above X-rays interpreted by me (1pt min.). @ -Shoulder x-ray shows no acute osseous pathology CT interpreted by me (1pt min.). @ -None done U/S interpreted by me (1pt. min.). @ -None done What testing was considered but not performed or refused? (CT, X-rays, U/S, labs)? Why? @ -None What meds were considered but not given or refused? Why? @ -None Did you discuss the management of the patient with other professionals (professionals i.e. , PA, [employer], lab, RT, psych nurse, social work professor, communications program manager, teacher, chief media officer, dependency case manager)? Give summary @ -No Was smoking cessation discussed for >3mins.? @ -No Was critical care preformed (if so, how long)? @ -No Were there social determinants of health that impacted care today? How? (Homelessness, low income, unemployed, alcoholism, drug addiction, transportation, low edu. Level, literacy, decrease access to med. care, care home, rehab)? @ -No Was there de-escalation of care discussed even if they declined (Discuss DNR or withdrawal of care, Hospice)? DNR status @ -No What co-morbidities impacted this encounter? (DM, HTN, Smoking, COPD, CAD, Cancer, CVA, ARF, Chemo, Hep., AIDS, mental health diagnosis, sleep apnea, morbid obesity)? @ -None Was patient admitted / discharged? Hospital course, mention meds given and route, prescriptions, significant lab abnormalities, going to OR and other pert inent info. @ -22-year-old female presenting with chief complaint of numbness and tingling as well as pain radiating from shoulder down the left arm. Patient states it started a few days ago when she was coughing and felt a pop in her shoulder. No neck pain. Range of motion and strength. X-rays negative. Patient is given Toradol and Decadron, on reassessment she reports improvement in her symptoms. She is educated on supportive management at home with Motrin and Tylenol and provided with a prescription for Medrol Dosepak. Follow-up with PCP. Report back to ER with any new or worsening symptoms. Discussed return parameters and answered all questions. Patient conveyed verbal understanding and agreed to the plan. I discussed this case in detail with my attending Dr. Cervantes Undiagnosed new problem with uncertain prognosis? @ -No Drug Therapy requiring intensive monitoring for toxicity (Heparin, Nitro, Insulin, Cardizem)? @ -No Were any procedures done? @ -No Diagnosis/symptom? @ -Paresthesia Acute, or Chronic, or Acute on Chronic? @ -Acute Uncomplicated (without systemic symptoms) or Complicated (systemic symptoms)? @ -Uncomplicated Side effects of treatment? @ -No Exacerbation, Progression, or Severe Exacerbation? @ -No Poses a threat to life or bodily function? How? (Chest pain, [place], [place], pneumonia, PE, COPD, DKA, ARF, appy, cholecystitis, CVA, Diverticulitis, Homicidal, Suicidal, threat to staff... and all critical care pts) @ -No Disposition Clinical Impression: Paresthesia Disposition: HOME SELF-CARE Condition: Good Instructions (If sedation given, give patient instructions): Paresthesia (ED) Additional Instructions: Follow-up with PCP. Report back to ER if any new or worsening symptoms. Take Motrin and Tylenol as needed for any pain control. Prescriptions: methylPREDNISolone Dose Pack [Medrol Dose Pack] 4 mg PO DIRECTED #1 packet Ibuprofen [Motrin] 600 mg PO Q6HR PRN #30 tab PRN Reason: Pain Is patient prescribed a controlled substance at d/c from ED?: No Referrals: Adama Valles [Primary Care Provider] - 1-2 days Time of Disposition: 00:23
--- NOTE | 2023-02-11 00:03 | XR ---
EXAMINATION TYPE: XR shoulder complete LT DATE OF EXAM: 02/10/2023 11:11 PM INDICATION: Patient age:Female; 22 years old; Reason for study: pain; COMPARISON: None TECHNIQUE: The left shoulder was examined in AP, internally rotated and scapular Y projections. FINDINGS: No evidence of acute osseous pathology, joint dislocation, or soft tissue swelling. The remaining por tions of the visualized chest are unremarkable. IMPRESSION: No acute osseous pathology.
[2023-02-11 00:40] VITALS: BP 147/78; PULSE 70; RESP 19
== END 2023-02-11 00:44 | disposition home or self-care (01) ==
LOC: EC 22:03
DX: R20.2 Paresthesia of skin (principal); F41.9 Anxiety disorder, unspecified; F32.A Depression, unspecified; F90.9 Attention-deficit hyperactivity disorder, unspecified type; J45.909 Unspecified asthma, uncomplicated; F17.290 Nicotine dependence, other tobacco product, uncomplicated; F12.90 Cannabis use, unspecified, uncomplicated; G47.30 Sleep apnea, unspecified; Z79.899 Other long term (current) drug therapy; Z88.8 Allergy status to other drugs, medicaments and biological substances
CPT/HCPCS: 93005; 73030; 99283; 96372 ×2; J1100; J1885

== ENCOUNTER 2023-05-31 11:27 | Emergency (ER) | payer OTHER ==
[2023-05-31] MEDS ORDERED: KETOROLAC 15 MG/ML 1 ML VIAL IM STA (12:24)
--- NOTE | 2023-05-31 12:34 | ED ---
Back Pain HPI - General Chief Complaint: Back Pain/Injury Stated Complaint: back pain Time Seen by Provider: 05/31/23 12:11 Source: patient, RN notes reviewed Limitations: no limitations - History of Present Illness Initial Comments: Patient is a 22-year-old female presented ER with chief complaint of back pain. Patient states in March of this year she had a twisting/falling incident in the shower. She states she's been having left-sided lower back pain with radiation down her left leg to her knee since. Patient states she has been able to walk but sometimes her leg starts to shake and she has to shift her weight to the right leg. Patient endorses the pain as a sharp/stabbing pain. She's been using [id number] Tylenol and Motrin and heating pad with slight relief. She states laying flat and change positions makes it extremely painful making it difficult for her to get out of bed in the morning. Patient denies any bowel or bladder incontinence, fevers, IV drug use, saddle paresthesias. Patient denies any other injuries. - Related Data Home Medications Medication Instructions Recorded Confirmed FLUoxetine HCL [PROzac] 20 mg PO HS 09/29/14 02/06/20 metFORMIN HCL ER [Glucophage XR] 500 mg PO HS 01/02/19 02/06/20 Previous Rx's Medication Instructions Recorded ALPRAZolam [Xanax] 0.5 mg PO BID PRN #6 tablet 02/06/20 Omeprazole [PriLOSEC] 40 mg PO DAILY #14 cap 03/20/20 Ondansetron Odt [Zofran Odt] 4 mg PO Q8HR PRN #10 tab 03/20/20 Cephalexin [Keflex] 500 mg PO Q6HR 10 Days #40 cap 02/03/21 Sulfamethox-Tmp 800-160Mg [Bactrim 1 tab PO Q12HR #20 tab 02/03/21 DS 800-160 mg] Ondansetron [Zofran ODT] 4 mg PO Q8HR PRN #15 tab 04/13/21 Ibuprofen [Motrin] 600 mg PO Q6HR PRN #30 tab 02/11/23 methylPREDNISolone Dose Pack 4 mg PO DIRECTED #1 packet 02/11/23 [Medrol Dose Pack] Cyclobenzaprine [Flexeril] 10 mg PO TID PRN #15 tab 05/31/23 Allergies Allergy/AdvReac Type Severity Reaction Status Date / Time sertraline HCl [From Zoloft] Allergy Rash/Hives/ Verified 05/31/23 11:49 SOB Review of Systems ROS Statement: Those systems with pertinent positive or pertinent negative responses have been documented in the HPI. ROS Other: All systems not noted in ROS Statement are negative. Past Medical History Past Medical History: Asthma, GERD/Reflux, Sleep Apnea/CPAP/BIPAP Additional Past Medical History / Comment(s): bladder cyst -polycystic ovarian syndrome-ON METFORMIN, History of Any Multi-Drug Resistant Organisms: MRSA Date of last positivie culture/infection: 2012 MDRO Source:: right leg Past Surgical History: Adenoidectomy, Cholecystectomy, Tonsillectomy Additional Past Surgical History / Comment(s): ovarian cyst, pain procedures, Past Anesthesia/Blood Transfusion Reactions: Postoperative Nausea & Vomiting (PONV) Past Psychological History: ADD/ADHD, Anxiety, Depression Smoking Status: Vaper Past Alcohol Use History: Occasional Past Drug Use History: Marijuana - Past Family History Father Family Medical History: Diabetes Mellitus, Eye Disorder, Hyperlipidemia Mother Family Medical History: Asthma, Hypertension, Pneumonia, Thyroid Disorder Additional Family Medical History / Comment(s): Anxiety, depression Brother(s) Family Medical History: Asthma Additional Family Medical History / Comment(s): 2 brothers with asthma General Exam Limitations: no limitations General appearance: alert, in no apparent distress Respiratory exam: Present: normal lung sounds bilaterally. Absent: respiratory distress, wheezes, rales, rhonchi, stridor Cardiovascular Exam: Present: regular rate, normal rhythm, normal heart sounds. Absent: systolic murmur, diastolic murmur, rubs, gallop, clicks Extremities exam: Present: normal inspection, full ROM, normal capillary refill, other (Positive left straight leg raise. 2+ dorsalis pedis pulse bilaterally. Sensation intact.). Absent: tenderness, pedal edema, joint swelling, calf tenderness Back exam: Present: normal inspection, tenderness (Lumbar and pelvic girdle) Neurological exam: Present: alert, oriented X3, CN II-XII intact Psychiatric exam: Present: normal affect, normal mood Skin exam: Present: warm, dry, intact, normal color. Absent: rash Course Vital Signs 05/31/23 11:46 Temperature 98.6 F Pulse Rate 88 Respiratory 18 Rate Blood Pressure 149/98 O2 Sat by Pulse 100 Oximetry Medical Decision Making - Medical Decision Making Was pt. sent in by a medical professional or institution (GADIEL Torres, [employer], urgent care, hospital, or longterm...) When possible be specific @ -No Did you speak to anyone other than the patient for history (EMS, parent, family, police, friend...)? What history was obtained from this source @ -No Did you review nursing and triage notes (agree or disagree)? Why? @ -I reviewed and agree with nursing and triage notes Were old charts reviewed (outside hosp., previous admission, EMS record, old EKG, old radiological studies, urgent care reports/EKG's, longterm records)? Report findings @ -No old charts were reviewed Differential Diagnosis (chest pain, altered mental status, abdominal pain women, abdominal pain men, vaginal bleeding, weakness, fever, dyspnea, syncope, headache, dizziness, GI bleed, back pain, seizure, CVA, palpatations, mental health, musculoskeletal)? @ -Differential Back Pain: Strain, zoster, cauda equina syndrome, epidural abscess, vertebral osteomyelitis, discitis, fracture, subluxation, disc herniation, DJD, spinal stenosis, dissection, AAA, pancreatitis, peptic ulcer disease, pyelonephritis, kidney stone, this is not meant to be an all-inclusive list. EKG interpreted by me (3pts min.). @ -None X-rays interpreted by me (1pt min.). @ -[Lumbar spine and right hip AP pelvis x-rays were negative for acute fract ures or dislocations. There is moderate degenerative narrowing of L4 through 5 and L5-S1. CT interpreted by me (1pt min.). @ -None done U/S interpreted by me (1pt. min.). @ -None done What testing was considered but not performed or refused? (CT, X-rays, U/S, labs)? Why? @ -None What meds were considered but not given or refused? Why? @ -None Did you discuss the management of the patient with other professionals (professionals i.e. GADIEL Torres, [employer], lab, RT, psych nurse, social sciences department chair, team assistant, teacher, employee service officer, case management director)? Give summary @ -No Was smoking cessation discussed for >3mins.? @ -No Was critical care preformed (if so, how long)? @ -No Were there social determinants of health that impacted care today? How? (Homelessness, low income, unemployed, alcoholism, drug addiction, transportation, low edu. Level, literacy, decrease access to med. care, intermediate, rehab)? @ -No Was there de-escalation of care discussed even if they declined (Discuss DNR or withdrawal of care, Hospice)? DNR status @ -No What co-morbidities impacted this encounter? (DM, HTN, Smoking, COPD, CAD, Cancer, CVA, ARF, Chemo, Hep., AIDS, mental health diagnosis, sleep apnea, morbid obesity)? @ -Obesity Was patient admitted / discharged? Hospital course, mention meds given and route, prescriptions, significant lab abnormalities, going to OR and other pertinent info. @ -Discharge. Patient is a 22-year-old female presenting to the ER chief complaint of back pain. Upon examination, patient's vital signs are stable. Physical exam was significant for a lumbar left pelvic girdle tenderness. No red flag back pain symptoms. No erythema, ecchymosis or rashes noted on skin. Patient received IM Toradol for pain control in the ER, with relief. X-rays of lumbar spine and right hip and AP pelvis were negative for acute fractures or dislocations. There was moderate degenerative narrowing of L4 through 5 and L5-S1 present. I discuss imaging findings with patient. I advised her to continue using oksh-whr-tzvkoep Tylenol and Motrin for pain control. Patient will be prescribed Flexeril. I educated patient on possible side effects of this medication. I suggested she continue to heat, massage, and stretching area as this is most likely a muscle spasm. Return parameters were discussed. Patient will be discharged in stable condition with follow-up to PCP. Patient expressed understanding and agreement with care plan. Undiagnosed new problem with uncertain prognosis? @ -No Drug Therapy requiring intensive monitoring for toxicity (Heparin, Nitro, Insulin, Cardizem)? @ -No Were any procedures done? @ -No Diagnosis/symptom? @ -Muscle spasm Acute, or Chronic, or Acute on Chronic? @ -Acute Uncomplicated (without systemic symptoms) or Complicated (systemic symptoms)? @ -Uncomplicated Side effects of treatment? @ -No Exacerbation, Progression, or Severe Exacerbation? @ -No Poses a threat to life or bodily function? How? (Chest pain, [place], [place], pneumonia, PE, COPD, DKA, ARF, appy, cholecystitis, CVA, Diverticulitis, Homicidal, Suicidal, threat to staff... and all critical care pts) @ -No - Radiology Data Radiology results: report reviewed, image reviewed Disposition Clinical Impression: Muscle spasm Disposition: HOME SELF-CARE Condition: Stable Instructions (If sedation given, give patient instructions): Acute Low Back Pain (ED) Additional Instructions: Please return to the Emergency Department if symptoms worsen or any other concerns. Please continue to use [id number]-gsk-jmunvcl Tylenol and Motrin for pain control. Massage, heat and stretching may also help. Prescriptions: Cyclobenzaprine [Flexeril] 10 mg PO TID PRN #15 tab PRN Reason: Muscle Spasm Is patient prescribed a controlled substance at d/c from ED?: No Referrals: Adama Valles [Primary Care Provider] - 1-2 days Time of Disposition: 14:32
--- NOTE | 2023-05-31 13:50 | XR ---
EXAMINATION TYPE: XR lumbar spine 2 or 3V DATE OF EXAM: 05/31/2023 CLINICAL HISTORY: pain TECHNIQUE: Three views of the lumbar spine are submitted. COMPARISON: None. FINDINGS: There are 5 lumbar type vertebral bodies identified. The lumbar spine shows satisfactory alignment w ithout evidence of acute fracture or dislocation. Vertebral body heights are within normal limits. Moderate degenerative narrowing L4-5 and L5-S1. The overlying soft tissue appears unremarkable. IMPRESSION: No acute fracture or dislocation is seen in the lumbar spine. ICD 10 NO FRACTURE, INITIAL EVALUATION
--- NOTE | 2023-05-31 13:53 | XR ---
EXAMINATION TYPE: XR Hip LT and AP Pelvis DATE OF EXAM: 05/31/2023 CLINICAL HISTORY: pain TECHNIQUE: Single view the pelvis is submitted. 2 views of the left hip are also submitted. FINDINGS: No evidence for fracture, dislocation or bony lesion. Joint spaces are well-preserved. S I joints appear symmetric. IMPRESSION: 1. No acute fracture or dislocation seen. ICD 10 NO FRACTURE, INITIAL EVALUATION
[2023-05-31 14:58] VITALS: BP 103/68; PULSE 70; RESP 16; TEMP 98.3
== END 2023-05-31 14:50 | disposition home or self-care (01) ==
LOC: EC 11:27
DX: M62.830 Muscle spasm of back (principal); J45.909 Unspecified asthma, uncomplicated; G47.30 Sleep apnea, unspecified; F32.A Depression, unspecified; F41.9 Anxiety disorder, unspecified; F12.90 Cannabis use, unspecified, uncomplicated; F17.290 Nicotine dependence, other tobacco product, uncomplicated; Z79.899 Other long term (current) drug therapy; Z79.84 Long term (current) use of oral hypoglycemic drugs; Z88.8 Allergy status to other drugs, medicaments and biological substances; Z90.49 Acquired absence of other specified parts of digestive tract
CPT/HCPCS: 72100; 73502; 99283; 96372; J1885

== ENCOUNTER 2024-01-25 15:18 | Emergency (ER) | payer SELFPAY | END 2024-01-25 17:27 | disposition left against medical advice (07) | LOC: EC 15:18 | CPT/HCPCS: 99499 ==

== ENCOUNTER 2024-07-07 08:03 | Emergency (ER) | payer OTHER ==
[2024-07-07 08:09] VITALS: BP 132/78; PULSE 80; RESP 18; TEMP 97.7
--- NOTE | 2024-07-07 08:19 | ED ---
General Adult HPI - General Chief complaint: Nausea/Vomiting/Diarrhea Stated complaint: posb alcohol posioning Time Seen by Provider: 07/07/24 08:11 Source: patient, RN notes reviewed Mode of arrival: ambulatory Limitations: no limitations - History of Present Illness Initial comments: Patient is a 23-year-old female present to the emergency department with concerns for nausea and vomiting. Patient states she drank a lot of alcohol last night, more than she has drank in a long time. Patient states she has been vomiting since 230. Unable to sleep since that time. Patient has mild abdominal discomfort. No fever. - Related Data Home Medications Medication Instructions Recorded Confirmed FLUoxetine HCL [PROzac] 20 mg PO HS 09/29/14 02/06/20 metFORMIN HCL ER [Glucophage XR] 500 mg PO HS 01/02/19 02/06/20 Previous Rx's Medication Instructions Recorded ALPRAZolam [Xanax] 0.5 mg PO BID PRN #6 tablet 02/06/20 Omeprazole [PriLOSEC] 40 mg PO DAILY #14 cap 03/20/20 Ondansetron Odt [Zofran Odt] 4 mg PO Q8HR PRN #10 tab 03/20/20 Cephalexin [Keflex] 500 mg PO Q6HR 10 Days #40 cap 02/03/21 Sulfamethox-Tmp 800-160Mg [Bactrim 1 tab PO Q12HR #20 tab 02/03/21 DS 800-160 mg] Ondansetron [Zofran ODT] 4 mg PO Q8HR PRN #15 tab 04/13/21 Ibuprofen [Motrin] 600 mg PO Q6HR PRN #30 tab 02/11/23 methylPREDNISolone Dose Pack 4 mg PO DIRECTED #1 packet 02/11/23 [Medrol Dose Pack] Cyclobenzaprine [Flexeril] 10 mg PO TID PRN #15 tab 05/31/23 Allergies Allergy/AdvReac Type Severity Reaction Status Date / Time sertraline HCl [From Zoloft] Allergy Rash/Hives/ Verified 07/07/24 08:09 SOB Review of Systems ROS Statement: Those systems with pertinent positive or pertinent negative responses have been documented in the HPI. ROS Other: All systems not noted in ROS Statement are negative. Constitutional: Denies: fever Eyes: Denies: eye pain ENT: Denies: ear pain Respiratory: Denies: cough Cardiovascular: Denies: chest pain Gastrointestinal: Reports: as per HPI, nausea, vomiting Genitourinary: Denies: dysuria Musculoskeletal: Denies: back pain Past Medical History Past Medical History: Asthma, GERD/Reflux, Sleep Apnea/CPAP/BIPAP Additional Past Medical History / Comment(s): bladder cyst -polycystic ovarian syndrome-ON METFORMIN, History of Any Multi-Drug Resistant Organisms: MRSA Date of last positivie culture/infection: 2012 MDRO Source:: right leg Past Surgical History: Adenoidectomy, Cholecystectomy, Tonsillectomy Additional Past Surgical History / Comment(s): ovarian cyst, pain procedures, Past Anesthesia/Blood Transfusion Reactions: Postoperative Nausea & Vomiting (PONV) Past Psychological History: ADD/ADHD, Anxiety, Depression Smoking Status: Vaper Past Alcohol Use History: Occasional Past Drug Use History: Marijuana - Past Family History Father Family Medical History: Diabetes Mellitus, Eye Disorder, Hyperlipidemia Mother Family Medical History: Asthma, Hypertension, Pneumonia, Thyroid Disorder Additional Family Medical History / Comment(s): Anxiety, depression Brother(s) Family Medical History: Asthma Additional Family Medical History / Comment(s): 2 brothers with asthma General Exam Limitations: no limitations General appearance: alert, in no apparent distress Head exam: Present: normocephalic Eye exam: Present: normal appearance Neck exam: Present: normal inspection Respiratory exam: Present: normal lung sounds bilaterally Cardiovascular Exam: Present: regular rate, normal rhythm GI/Abdominal exam: Present: soft, tenderness (Minimal epigastric tenderness). Absent: distended, guarding, rebound, rigid, pulsatile mass Extremities exam: Present: normal inspection Neurological exam: Present: alert Psychiatric exam: Present: normal affect, normal mood Skin exam: Present: normal color Course Vital Signs 07/07/24 08:06 Temperature 97.7 F Pulse Rate 80 Respiratory 18 Rate Blood Pressure 132/78 O2 Sat by Pulse 99 Oximetry Medical Decision Making - Medical Decision Making Was pt. sent in by a medical professional or institution (, PA, CHARACTER IMPERSONATOR, urgent care, hospital, or care home...) When possible be specific @ -No Did you speak to anyone other than the patient for history (EMS, parent, family, police, friend...)? What history was obtained from this source @ -No Did you review nursing and triage notes (agree or disagree)? Why? @ -I reviewed and agree with nursing and triage notes Were old charts reviewed (outside hosp., previous admission, EMS record, old EKG, old radiological studies, urgent care reports/EKG's, care home records)? Report findings @ -No old charts were reviewed Differential Diagnosis (chest pain, altered mental status, abdominal pain women, abdominal pain men, vaginal bleeding, weakness, fever, dyspnea, syncope, headache, dizziness, GI bleed, back pain, seizure, CVA, palpatations, mental health, musculoskeletal)? @ -Differential Abdominal Pain Women: Appendicitis, Cholecystitis, diverticulosis, ischemic bowel, pancreatitis, hepatitis, UTI, gastroenteritis, AAA, incarcerated hernia, bowel obstruction, constipation, inflammatory bowel, hepatitis, peptic ulcer disease, splenic infarction, perforated viscus, vulvitis, ovarian torsion, PID, kidney stone, placenta abruption, this is not meant to be an all-inclusive list EKG interpreted by me (3pts min.). @ -As above X-rays interpreted by me (1pt min.). @ -None done CT interpreted by me (1pt min.). @ -None done U/S interpreted by me (1pt. min.). @ -None done What testing was considered but not performed or refused? (CT, X-rays, U/S, labs)? Why? @ -None What meds were considered but not given or refused? Why? @ -None Did you discuss the management of the patient with other professionals (professionals i.e. , PA, CHARACTER IMPERSONATOR, lab, RT, psych nurse, social media content manager, knot tying operator, teacher, community chest officer, rifle case repairer)? Give summary @ -No Was smoking cessation discussed for >3mins.? @ -No Was critical care preformed (if so, how long)? @ -No Were there social determinants of health that impacted care today? How? (Homelessness, low income, unemployed, alcoholism, drug addiction, transportat ion, low edu. Level, literacy, decrease access to med. care, senior living, rehab)? @ -No Was there de-escalation of care discussed even if they declined (Discuss DNR or withdrawal of care, Hospice)? DNR status @ -No What co-morbidities impacted this encounter? (DM, HTN, Smoking, COPD, CAD, Cancer, CVA, ARF, Chemo, Hep., AIDS, mental health diagnosis, sleep apnea, morbid obesity)? @ -None Was patient admitted / discharged? Hospital course, mention meds given and route, prescriptions, significant lab abnormalities, going to OR and other pertinent info. @ -Patient presents with concerns for nausea and vomiting following alcohol ingestion. Workup unremarkable. Patient reevaluated and feeling much better. Patient updated, patient to be discharged Undiagnosed new problem with uncertain prognosis? @ -No Drug Therapy requiring intensive monitoring for toxicity (Heparin, Nitro, Insulin, Cardizem)? @ -No Were any procedures done? @ -No Diagnosis/symptom? @ -Vomiting Acute, or Chronic, or Acute on Chronic? @ -Acute Uncomplicated (without systemic symptoms) or Complicated (systemic symptoms)? @ -Default Side effects of treatment? @ -No Exacerbation, Progression, or Severe Exacerbation? @ -No Poses a threat to life or bodily function? How? (Chest pain, [place], [place], pneumonia, PE, COPD, DKA, ARF, appy, cholecystitis, CVA, Diverticulitis, Homicidal, Suicidal, threat to staff... and all critical care pts) @ -No - Lab Data Result diagrams: 07/07/24 08:22 07/07/24 08:22 Lab Results 07/07/24 07/07/24 Range/Units 08:22 08:22 WBC 12.8 H (3.8-10.6) k/uL RBC 4.51 (3.80-5.40) m/uL Hgb 13.7 (11.4-16.0) gm/dL Hct 40.8 (34.0-46.0) % MCV 90.5 (80.0-100.0) fL MCH 30.4 (25.0-35.0) pg MCHC 33.6 (31.0-37.0) g/dL RDW 12.9 (11.5-15.5) % Plt Count 335 (150-450) k/uL MPV 7.2 Neutrophils % 90 % Lymphocytes % 6 % Monocytes % 2 % Eosinophils % 1 % Basophils % 0 % Neutrophils # 11.6 H (1.3-7.7) k/uL Lymphocytes # 0.8 L (1.0-4.8) k/uL Monocytes # 0.3 (0-1.0) k/uL Eosinophils # 0.1 (0-0.7) k/uL Basophils # 0.0 (0-0.2) k/uL Sodium 143 (137-145) mmol/L Potassium 3.9 (3.5-5.1) mmol/L Chloride 109 H (98-107) mmol/L Carbon Dioxide 21 L (22-30) mmol/L Anion Gap 13 mmol/L BUN 7 (7-17) mg/dL Creatinine 0.61 (0.52-1.04) mg/dL Est GFR (CKD-EPI)AfAm >90 (>60 ml/min/1.73 sqM) Est GFR (CKD-EPI)NonAf >90 (>60 ml/min/1.73 sqM) Glucose 122 H (74-99) mg/dL Calcium 9.1 (8.4-10.2) mg/dL Total Bilirubin 0.5 (0.2-1.3) mg/dL AST 25 (14-36) U/L ALT 31 (4-34) U/L Alkaline Phosphatase 108 (38-126) U/L Total Protein 7.6 (6.3-8.2) g/dL Albumin 4.5 (3.5-5.0) g/dL Amylase 46 (30-110) U/L Lipase 156 (23-300) U/L HCG, Quant <2.4 mIU/mL Disposition Clinical Impression: Vomiting Disposition: HOME SELF-CARE Condition: Stable Instructions (If sedation given, give patient instructions): Acute Nausea and Vomiting (ED) Additional Instructions: Please do follow-up with your primary care physician in the next couple of days for recheck. Return for increased vomiting, fever, abdominal pain, worsening or changing symptoms or any other concerns. Is patient prescribed a controlled substance at d/c from ED?: No Referrals: Adama Valles [Primary Care Provider] - 1-2 days Time of Disposition: 09:39
[2024-07-07] MEDS: FAMOTIDINE 20 MG/2 ML VIAL IV STA (08:27)
[2024-07-07] MEDS: ONDANSETRON 4 MG/2 ML VIAL IVP STA (08:27)
[2024-07-07] MEDS: SODIUM CHLORIDE 0.9% 1,000 ML IV STA (08:27)
[2024-07-07 08:29] LABS: Basophils % (A) 0 %; Eosinophils # (A) 0.1 k/uL (0-0.7); Eosinophils % (A) 1 %; HCT 40.8 % (34.0-46.0); HGB 13.7 gm/dL (11.4-16.0); Lymphocytes # (A) 0.8 k/uL (1.0-4.8); Lymphocytes % (A) 6 %; MCH 30.4 pg (25.0-35.0); MCHC 33.6 g/dL (31.0-37.0); MCV 90.5 fL (80.0-100.0); Mean Platelet Volume 7.2; Monocytes # (A) 0.3 k/uL (0-1.0); Monocytes % (A) 2 %; Neutrophils # (A) 11.6 k/uL (1.3-7.7); Neutrophils % (A) 90 %; Platelet Count 335 k/uL (150-450); RBC 4.51 m/uL (3.80-5.40); RDW 12.9 % (11.5-15.5); WBC 12.8 k/uL (3.8-10.6)
[2024-07-07] MEDS: ACETAMINOPHEN IV (For NPO) 1,000 MG in EMPTY BAG 1 BAG IVPB STA (08:36)
[2024-07-07 08:41] LABS: ALT 31 U/L (4-34); AST 25 U/L (14-36); African American GFR (CKD) >90 (>60 ml/min/1.73 sqM); Albumin 4.5 g/dL (3.5-5.0); Alkaline Phosphatase 108 U/L (38-126); Amylase 46 U/L (30-110); Anion Gap 13 mmol/L; Blood Urea Nitrogen 7 mg/dL (7-17); Calcium 9.1 mg/dL (8.4-10.2); Carbon Dioxide 21 mmol/L (22-30); Chloride 109 mmol/L (98-107); Glucose 122 mg/dL (74-99); Lipase 156 U/L (23-300); Non-African American GFR(CKD) >90 (>60 ml/min/1.73 sqM); Potassium 3.9 mmol/L (3.5-5.1); Sodium 143 mmol/L (137-145); Total Bilirubin 0.5 mg/dL (0.2-1.3); Total Protein 7.6 g/dL (6.3-8.2)
[2024-07-07 08:58] LABS: HCG,Quantitative Serum <2.4 mIU/mL
== END 2024-07-07 09:48 | disposition home or self-care (01) ==
LOC: EC 08:03
DX: R11.2 Nausea with vomiting, unspecified (principal); F17.290 Nicotine dependence, other tobacco product, uncomplicated; Z88.8 Allergy status to other drugs, medicaments and biological substances
CPT/HCPCS: 36415; 80053; 82150; 83690; 85025; 84702; 99284; 96365; 96375; 96361; J2405; J3490; J0131

== ENCOUNTER 2024-10-26 09:00 | Emergency (ER) | payer OTHER ==
--- NOTE | 2024-10-26 09:20 | ED ---
Nausea/Vomiting/Diarrhea HPI - General Chief complaint: Nausea/Vomiting/Diarrhea Stated complaint: vomiting Time Seen by Provider: 10/26/24 09:12 Source: patient, RN notes reviewed Mode of arrival: ambulatory Limitations: no limitations - History of Present Illness Initial comments: 24-year-old female with history of PCOS presenting to emergency department for complaints of nausea and abdominal pain over the past week. Patient states that in the morning over the past week she will wake up with severe nausea and vomiting. Nausea persist throughout the day with vomiting occurring in the morning. She denies hematemesis or coffee-ground emesis. Endorses epigastric abdominal pain during episodes of vomiting. Additionally, states that yesterday evening she was experiencing left lower pelvic pain. Denies dysuria increased urinary frequency or urgency, hematuria, vaginal discharge or odor. Patient states that her last menstrual cycle was 09/14/2024. Patient had a history of right sided ovarian cyst removal. Previous cholecystectomy. - Related Data Home Medications Medication Instructions Recorded Confirmed FLUoxetine HCL [PROzac] 20 mg PO HS 09/29/14 02/06/20 metFORMIN HCL ER [Glucophage XR] 500 mg PO HS 01/02/19 02/06/20 Previous Rx's Medication Instructions Recorded ALPRAZolam [Xanax] 0.5 mg PO BID PRN #6 tablet 02/06/20 Omeprazole [PriLOSEC] 40 mg PO DAILY #14 cap 03/20/20 Ondansetron Odt [Zofran Odt] 4 mg PO Q8HR PRN #10 tab 03/20/20 Cephalexin [Keflex] 500 mg PO Q6HR 10 Days #40 cap 02/03/21 Sulfamethox-Tmp 800-160Mg [Bactrim 1 tab PO Q12HR #20 tab 02/03/21 DS 800-160 mg] Ondansetron [Zofran ODT] 4 mg PO Q8HR PRN #15 tab 04/13/21 Ibuprofen [Motrin] 600 mg PO Q6HR PRN #30 tab 02/11/23 methylPREDNISolone Dose Pack 4 mg PO DIRECTED #1 packet 02/11/23 [Medrol Dose Pack] Cyclobenzaprine [Flexeril] 10 mg PO TID PRN #15 tab 05/31/23 Nitrofurantoin Monohyd/M-Cryst 100 mg PO Q12HR #14 cap 10/26/24 [Macrobid] Ondansetron Odt [Zofran Odt] 4 mg PO Q8HR PRN #10 tab 10/26/24 Allergies Allergy/AdvReac Type Severity Reaction Status Date / Time sertraline HCl [From Zoloft] Allergy Rash/Hives/ Verified 07/07/24 08:09 SOB Review of Systems ROS Statement: Those systems with pertinent positive or pertinent negative responses have been documented in the HPI. ROS Other: All systems not noted in ROS Statement are negative. Past Medical History Past Medical History: Asthma, GERD/Reflux, Sleep Apnea/CPAP/BIPAP Additional Past Medical History / Comment(s): bladder cyst -polycystic ovarian syndrome-ON METFORMIN, History of Any Multi-Drug Resistant Organisms: MRSA Date of last positivie culture/infection: 2012 MDRO Source:: right leg Past Surgical History: Adenoidectomy, Cholecystectomy, Tonsillectomy Additional Past Surgical History / Comment(s): ovarian cyst, pain procedures, Past Anesthesia/Blood Transfusion Reactions: Postoperative Nausea & Vomiting (PONV) Past Psychological History: ADD/ADHD, Anxiety, Depression Smoking Status: Vaper Past Alcohol Use History: Occasional Past Drug Use History: Marijuana - Past Family History Father Family Medical History: Diabetes Mellitus, Eye Disorder, Hyperlipidemia Mother Family Medical History: Asthma, Hypertension, Pneumonia, Thyroid Disorder Additional Family Medical History / Comment(s): Anxiety, depression Brother(s) Family Medical History: Asthma Additional Family Medical History / Comment(s): 2 brothers with asthma General Exam Limitations: no limitations General appearance: alert, in no apparent distress ENT exam: Present: normal exam, mucous membranes moist Neck exam: Present: normal inspection. Absent: tenderness, meningismus, lymphadenopathy Respiratory exam: Present: normal lung sounds bilaterally. Absent: respiratory distress, wheezes, rales, rhonchi, stridor Cardiovascular Exam: Present: regular rate, normal rhythm, normal heart sounds. Absent: systolic murmur, diastolic murmur, rubs, gallop, clicks GI/Abdominal exam: Present: soft, tenderness (supurapubic/pelvic), normal bowel sounds. Absent: distended, guarding, rebound, rigid Extremities exam: Present: normal inspection, full ROM, normal capillary refill. Absent: tenderness, pedal edema, joint swelling, calf tenderness Back exam: Present: normal inspection. Absent: CVA tenderness (R), CVA tenderness (L) Skin exam: Present: warm, dry, intact, normal color. Absent: rash Course Vital Signs 10/26/24 09:01 Temperature 98.3 F Pulse Rate 81 Respiratory 20 Rate Blood Pressure 128/78 O2 Sat by Pulse 99 Oximetry Medical Decision Making - Medical Decision Making Was pt. sent in by a medical professional or institution (, PA, RELOCATION SPECIALIST, urgent care, hospital, or shelter...) When possible be specific @ -No Did you speak to anyone other than the patient for history (EMS, parent, family, police, friend...)? What history was obtained from this source @ -No Did you review nursing and triage notes (agree or disagree)? Why? @ -I reviewed and agree with nursing and triage notes Were old charts reviewed (outside hosp., previous admission, EMS record, old EKG, old radiological studies, urgent care reports/EKG's, shelter records)? Report findings @ -No old charts were reviewed Differential Diagnosis (chest pain, altered mental status, abdominal pain women, abdominal pain men, vaginal bleeding, weakness, fever, dyspnea, syncope, headache, dizziness, GI bleed, back pain, seizure, CVA, palpatations, mental health, musculoskeletal)? @ -Differential Abdominal Pain Women: Appendicitis, Cholecystitis, diverticulosis, ischemic bowel, pancreatitis, hepatitis, UTI, gastroenteritis, AAA, incarcerated hernia, bowel obstruction, constipation, inflammatory bowel, hepatitis, peptic ulcer disease, splenic infarction, perforated viscus, vulvitis, ovarian torsion, PID, kidney stone, placenta abruption, this is not meant to be an all-inclusive list EKG interpreted by me (3pts min.). @ -None X-rays interpreted by me (1pt min.). @ -None done CT interpreted by me (1pt min.). @ -None done U/S interpreted by me (1pt. min.). @ -Transabdominal ultrasound completed which reveals a gestational sac and yolk sac identified with a gestational age of approximately 5 weeks 4 days with no f etal pole or heart tones identified at this time What testing was considered but not performed or refused? (CT, X-rays, U/S, labs)? Why? @ -None What meds were considered but not given or refused? Why? @ -None Did you discuss the management of the patient with other professionals (anabell restrepo i.e. , PA, RELOCATION SPECIALIST, lab, RT, psych nurse, social welfare administrator, armor senior sergeant, teacher, corporate security officer, onsite case manager)? Give summary @ -No Was smoking cessation discussed for >3mins.? @ -No Was critical care preformed (if so, how long)? @ -No Were there social determinants of health that impacted care today? How? (Homelessness, low income, unemployed, alcoholism, drug addiction, transportation, low edu. Level, literacy, decrease access to med. care, [facility], rehab)? @ -No Was there de-escalation of care discussed even if they declined (Discuss DNR or withdrawal of care, Hospice)? DNR status @ -No What co-morbidities impacted this encounter? (DM, HTN, Smoking, COPD, CAD, Cancer, CVA, ARF, Chemo, Hep., AIDS, mental health diagnosis, sleep apnea, morbid obesity)? @ -None Was patient admitted / discharged? Hospital course, mention meds given and route, prescriptions, significant lab abnormalities, going to OR and other pertinent info. @ -Discharged. 24-year-old female presents emergency department with complaint of nausea, vomiting, lower abdominal pain. Patient has mild tenderness to the left lower quadrant over the uterus. She was offered pain medication antiemetics and was declined. Patient will be provided with IV fluids pending laboratory evaluation. Patient's urinalysis has tested positive for hCG level. Urine does reveal leukocytes, white cells and mucus. Patient's hCG level of 4343.4, CBC and CMP is unremarkable. Transabdominal ultrasound reveals a gestational sac and yolk sac within age of 5 weeks 4 days with no pole or heart tones identified at this time. Patient abide with prescription for repeat hCG testing in 48 hours and recommend repeat ultrasound testing in 1 week. Return parameters discussed. Case discussed with Dr. Robles Undiagnosed new problem with uncertain prognosis? @ -No Drug Therapy requiring intensive monitoring for toxicity (Heparin, Nitro, Insulin, Cardizem)? @ -No Were any procedures done? @ -No Diagnosis/symptom? @ -early , nausea and vomiting during Acute, or Chronic, or Acute on Chronic? @ -acute Uncomplicated (without systemic symptoms) or Complicated (systemic symptoms)? @ -uncomplicated Side effects of treatment? @ -No Exacerbation, Progression, or Severe Exacerbation? @ -No Poses a threat to life or bodily function? How? (Chest pain, [place], [place], pneumonia, PE, COPD, DKA, ARF, appy, cholecystitis, CVA, Diverticulitis, Homicidal, Suicidal, threat to staff... and all critical care pts) @ -No - Lab Data Result diagrams: 10/26/24 09:10/26/24 09: Lab Results 10/26/24 10/26/24 10/26/24 Range/Units 09: 09: 09: WBC 6.99 (4.50-10.00) 10*3/uL RBC 4.01 L (4.10-5.20) 10*6/uL Hgb 12.4 (12.0-15.0) g/dL Hct 36.4 L (37.2-46.3) % MCV 90.8 (80.0-97.0) fL MCH 30.9 (27.0-32.0) pg MCHC 34.1 (32.0-37.0) g/dL Plt Count 298 (140-440) 10*3/uL MPV 9.5 (9.5-12.2) fL Immature Gran % (Auto) 0.3 % Neutrophils % 74.5 % Lymphocytes % 16.3 % Monocytes % 6.6 % Eosinophils % 1.7 % Basophils % 0.6 % Immature Gran # 0.02 (0.00-0.04) 10*3/uL Neutrophils # 5.21 (1.80-7.70) 10*3/uL Lymphocytes # 1.14 (0.90-5.00) 10*3/uL Monocytes # 0.46 (0.20-1.00) 10*3/uL Eosinophils # 0.12 (0.04-0.35) 10*3/uL Basophils # 0.04 (0.00-0.10) 10*3/uL Sodium 140 (137-145) mmol/L Potassium 3.9 (3.5-5.1) mmol/L Chloride 107 (98-107) mmol/L Carbon Dioxide 21 L (22-30) mmol/L Anion Gap 12 mmol/L BUN 6 L (7-17) mg/dL Creatinine 0.56 (0.52-1.04) mg/dL Est GFR (CKD-EPI)AfAm >90 (>60 ml/min/1.73 sqM) Est GFR (CKD-EPI)NonAf >90 (>60 ml/min/1.73 sqM) Glucose 94 (74-99) mg/dL Calcium 9.3 (8.4-10.2) mg/dL Magnesium 2.0 (1.6-2.3) mg/dL Total Bilirubin 0.6 (0.2-1.3) mg/dL AST 28 (14-36) U/L ALT 56 H (4-34) U/L Alkaline Phosphatase 78 (38-126) U/L Total Protein 7.2 (6.3-8.2) g/dL Albumin 4.3 (3.5-5.0) g/dL Lipase 166 (23-300) U/L HCG, Quant 4343.4 mIU/mL Urine Color Urine Appearance (Clear) Urine pH (5.0-8.0) Ur Specific [place] (1.001-1.035) Urine Protein (Negative) Urine Glucose (UA) (Negative) Urine Ketones (Negative) Urine Blood (Negative) Urine Nitrite (Negative) Urine Bilirubin (Negative) Urine Urobilinogen (<2.0) mg/dL Ur Leukocyte Esterase (Negative) Urine RBC (0-5) /hpf Urine WBC (0-5) /hpf Ur Squamous Epith Cells (0-4) /hpf Urine Mucus (None) /hpf Urine HCG, Qual (Not Detectd) 10/26/24 10/26/24 Range/Units 09:34 09:34 WBC (4.50-10.00) 10*3/uL RBC (4.10-5.20) 10*6/uL Hgb (12.0-15.0) g/dL Hct (37.2-46.3) % MCV (80.0-97.0) fL MCH (27.0-32.0) pg MCHC (32.0-37.0) g/dL Plt Count (140-440) 10*3/uL MPV (9.5-12.2) fL Immature Gran % (Auto) % Neutrophils % % Lymphocytes % % Monocytes % % Eosinophils % % Basophils % % Immature Gran # (0.00-0.04) 10*3/uL Neutrophils # (1.80-7.70) 10*3/uL Lymphocytes # (0.90-5.00) 10*3/uL Monocytes # (0.20-1.00) 10*3/uL Eosinophils # (0.04-0.35) 10*3/uL Basophils # (0.00-0.10) 10*3/uL Sodium (137-145) mmol/L Potassium (3.5-5.1) mmol/L Chloride (98-107) mmol/L Carbon Dioxide (22-30) mmol/L Anion Gap mmol/L BUN (7-17) mg/dL Creatinine (0.52-1.04) mg/dL Est GFR (CKD-EPI)AfAm (>60 ml/min/1.73 sqM) Est GFR (CKD-EPI)NonAf (>60 ml/min/1.73 sqM) Glucose (74-99) mg/dL Calcium (8.4-10.2) mg/dL Magnesium (1.6-2.3) mg/dL Total Bilirubin (0.2-1.3) mg/dL AST (14-36) U/L ALT (4-34) U/L Alkaline Phosphatase (38-126) U/L Total Protein (6.3-8.2) g/dL Albumin (3.5-5.0) g/dL Lipase (23-300) U/L HCG, Quant mIU/mL Urine Color Yellow Urine Appearance Cloudy H (Clear) Urine pH 6.0 (5.0-8.0) Ur Specific [place] 1.024 (1.001-1.035) Urine Protein 1+ H (Negative) Urine Glucose (UA) Negative (Negative) Urine Ketones Negative (Negative) Urine Blood Negative (Negative) Urine Nitrite Negative (Negative) Urine Bilirubin Negative (Negative) Urine Urobilinogen 2.0 (<2.0) mg/dL Ur Leukocyte Esterase Large H (Negative) Urine RBC 9 H (0-5) /hpf Urine WBC 11 H (0-5) /hpf Ur Squamous Epith Cells 14 H (0-4) /hpf Urine Mucus Moderate H (None) /hpf Urine HCG, Qual Detected (Not Detectd) Disposition Clinical Impression: Early stage of , Nausea and vomiting during Disposition: HOME SELF-CARE Condition: Stable Instructions (If sedation given, give patient instructions): Abdominal Pain in (ED) Additional Instructions: Please return to the Emergency Department if symptoms worsen or any other concerns. Please complete antibiotics as prescribed for asymptomatic bacteria in urine during . It is strongly encouraged that you begin to take a vitamin that includes folic acid. Vitamin B6 has been shown to be efficacious for nausea and vomiting during . Take Zofran strictly as needed for nausea. Follow-up 48 hours for repeat hCG level in addition to repeat ultrasound testing in 1 week Prescriptions: Nitrofurantoin Monohyd/M-Cryst [Macrobid] 100 mg PO Q12HR #14 cap Ondansetron Odt [Zofran Odt] 4 mg PO Q8HR PRN #10 tab PRN Reason: Nausea Is patient prescribed a controlled substance at d/c from ED?: No Referrals: Adama Valles [Primary Care Provider] - 1-2 days Homero Graves MD [STAFF PHYSICIAN] - 1-2 days Time of Disposition: 11:18
[2024-10-26] MEDS: SODIUM CHLORIDE 0.9% 1,000 ML IV ONE (09:33)
[2024-10-26 09:39] LABS: Basophils # (A) 0.04 10*3/uL (0.00-0.10); Basophils % (A) 0.6 %; Eosinophils # (A) 0.12 10*3/uL (0.04-0.35); Eosinophils % (A) 1.7 %; HCT 36.4 % (37.2-46.3); HGB 12.4 g/dL (12.0-15.0); Lymphocytes # (A) 1.14 10*3/uL (0.90-5.00); Lymphocytes % (A) 16.3 %; MCH 30.9 pg (27.0-32.0); MCHC 34.1 g/dL (32.0-37.0); MCV 90.8 fL (80.0-97.0); Mean Platelet Volume 9.5 fL (9.5-12.2); Monocytes # (A) 0.46 10*3/uL (0.20-1.00); Monocytes % (A) 6.6 %; Neutrophils # (A) 5.21 10*3/uL (1.80-7.70); Neutrophils % (A) 74.5 %; Platelet Count 298 10*3/uL (140-440); RBC 4.01 10*6/uL (4.10-5.20); RDW 13.3 % (11.5-14.5); WBC 6.99 10*3/uL (4.50-10.00)
[2024-10-26 09:49] LABS: ALT 56 U/L (4-34); AST 28 U/L (14-36); African American GFR (CKD) >90 (>60 ml/min/1.73 sqM); Albumin 4.3 g/dL (3.5-5.0); Alkaline Phosphatase 78 U/L (38-126); Anion Gap 12 mmol/L; Blood Urea Nitrogen 6 mg/dL (7-17); Calcium 9.3 mg/dL (8.4-10.2); Carbon Dioxide 21 mmol/L (22-30); Chloride 107 mmol/L (98-107); Glucose 94 mg/dL (74-99); Lipase 166 U/L (23-300); Non-African American GFR(CKD) >90 (>60 ml/min/1.73 sqM); Potassium 3.9 mmol/L (3.5-5.1); Sodium 140 mmol/L (137-145); Total Bilirubin 0.6 mg/dL (0.2-1.3); Total Protein 7.2 g/dL (6.3-8.2)
[2024-10-26 09:52] VITALS: TEMP 98.3
[2024-10-26 09:52] LABS: Appearance,Urine Cloudy (Clear); Bilirubin,Urine Negative (Negative); Blood,Urine Negative (Negative); Color,Urine Yellow; Glucose,Urine (UA) Negative (Negative); Ketones,Urine Negative (Negative); Leukocyte Esterase,Urine Large (Negative); Mucus,Urine Moderate /hpf; Nitrite,Urine Negative (Negative); Protein,Urine 1+ (Negative); RBC,Urine 9 /hpf (0-5); Specific Gravity,Urine 1.024 (1.001-1.035); Squamous Epithelial Cell,Urine 14 /hpf (0-4); WBC,Urine 11 /hpf (0-5)
--- NOTE | 2024-10-26 10:58 | US ---
EXAMINATION TYPE: Transabdominal DATE OF EXAM: 10/26/2024 10:37 AM COMPARISON: NONE CLINICAL INDICATION: Female, 24 years old with history of left lower quadrant pain, hx PCOS w/ cyst r emoval; LLQ pain, cramping TECHNIQUE: Transvaginal (TV) with grayscale and color Doppler imaging including first trimester pregn stephanie. FINDINGS: EXAM MEASUREMENTS: GESTATIONAL AGE / DATING Physician Established: Not yet established Dates by LMP: (6 weeks/0 days) EDC: 06/21/24 Dates by First Scan: No previous this is first scan Dates by Current Scan for: (5 weeks/4 days) EDC: 06/25/24 MATERNAL ANATOMY Uterus: 7.8x4.1x4.5cm Right Ovary: 2.2x1.7x2.3cm Left Ovary: 3.1x2.3x1.6cm Post CDS / Adnexa: wnl Presence of free fluid: no Presence of corpus luteal cyst: no Presence of subchorionic bleed: no GESTATION / SURVEY Gestational Sac morphology: unremarkable Gestational Sac MSD: 0.9cm (5 weeks/4 days) Yolk Sac (normal less than 6mm): 3mm IUP: Gestational; sac and yolk sac identified Date of LMP: 09/14/2024 Beta HcG (if available): Not available at this time IMPRESSION: 1. Gestational sac and yolk sac identified with a gestational age of approximately 5 weeks and 4 days . pole and heart rate are not identified. 2. No adnexal abnormalities. 3. No free fluid within the pelvis. [facility], Workstation: DAISY 10/26/2024 10:56 AM
[2024-10-26 11:56] VITALS: BP 126/70; PULSE 84; RESP 22
== END 2024-10-26 11:56 | disposition home or self-care (01) ==
LOC: EC 09:00
DX: O21.9 Vomiting of pregnancy, unspecified (principal); O99.331 Smoking (tobacco) complicating pregnancy, first trimester; F17.290 Nicotine dependence, other tobacco product, uncomplicated; Z3A.01 Less than 8 weeks gestation of pregnancy
CPT/HCPCS: 36415; 76801; 76817; 80053; 81001; 81025; 83690; 83735; 84702; 85025; 87086; 96360; 99284

== ENCOUNTER 2024-10-28 07:52 | Emergency (ER) | payer OTHER ==
--- NOTE | 2024-10-28 08:37 | ED ---
General Adult HPI - General Chief complaint: Recheck/Abnormal Lab/Rx Stated complaint: NV Time Seen by Provider: 10/28/24 08:06 Source: patient Mode of arrival: ambulatory Limitations: no limitations - History of Present Illness Initial comments: Dictation was produced using Search to Phone dictation software. please excuse any grammatical, word or spelling errors. Chief Complaint: 24-year-old female presents to the ER with nausea vomiting of History of Present Illness: Patient 24-year-old female she just found out she was a couple days ago. States she is here today with nausea and vomiting in . Denies any lower abdominal pain. Patient states that she has been having some reflux symptoms at night when she is sleeping. Denies any vaginal bleeding. Patient has not follow-up with OB/GYN PHYSICIAN yet. The ROS documented in this emergency department record has been reviewed and confirmed by me. Those systems with pertinent positive or negative responses have been documented in the HPI. All other systems are other negative and/or noncontributory. - Related Data Home Medications Medication Instructions Recorded Confirmed FLUoxetine HCL [PROzac] 20 mg PO HS 09/29/14 02/06/20 metFORMIN HCL ER [Glucophage XR] 500 mg PO HS 01/02/19 02/06/20 Previous Rx's Medication Instructions Recorded ALPRAZolam [Xanax] 0.5 mg PO BID PRN #6 tablet 02/06/20 Omeprazole [PriLOSEC] 40 mg PO DAILY #14 cap 03/20/20 Ondansetron Odt [Zofran Odt] 4 mg PO Q8HR PRN #10 tab 03/20/20 Cephalexin [Keflex] 500 mg PO Q6HR 10 Days #40 cap 02/03/21 Sulfamethox-Tmp 800-160Mg [Bactrim 1 tab PO Q12HR #20 tab 02/03/21 DS 800-160 mg] Ondansetron [Zofran ODT] 4 mg PO Q8HR PRN #15 tab 04/13/21 Ibuprofen [Motrin] 600 mg PO Q6HR PRN #30 tab 02/11/23 methylPREDNISolone Dose Pack 4 mg PO DIRECTED #1 packet 02/11/23 [Medrol Dose Pack] Cyclobenzaprine [Flexeril] 10 mg PO TID PRN #15 tab 05/31/23 Nitrofurantoin Monohyd/M-Cryst 100 mg PO Q12HR #14 cap 10/26/24 [Macrobid] Ondansetron Odt [Zofran Odt] 4 mg PO Q8HR PRN #10 tab 10/26/24 Doxylamine Succinate/Vit B6 1 tab PO TID PRN #24 tab 10/28/24 [Diclegis Dr 10-10 mg Tablet] Allergies Allergy/AdvReac Type Severity Reaction Status Date / Time sertraline HCl [From Zoloft] Allergy Rash/Hives/ Verified 10/28/24 08:08 SOB Review of Systems ROS Statement: Those systems with pertinent positive or pertinent negative responses have been documented in the HPI. ROS Other: All systems not noted in ROS Statement are negative. Past Medical History Past Medical History: Asthma, GERD/Reflux, Sleep Apnea/CPAP/BIPAP Additional Past Medical History / Comment(s): bladder cyst -polycystic ovarian syndrome-ON METFORMIN, History of Any Multi-Drug Resistant Organisms: MRSA Date of last positivie culture/infection: 2012 MDRO Source:: right leg Past Surgical History: Adenoidectomy, Cholecystectomy, Tonsillectomy Additional Past Surgical History / Comment(s): ovarian cyst, pain procedures, Past Anesthesia/Blood Transfusion Reactions: Postoperative Nausea & Vomiting (PONV) Past Psychological History: ADD/ADHD, Anxiety, Depression Smoking Status: Vaper Past Alcohol Use History: Occasional Past Drug Use History: Marijuana - Past Family History Father Family Medical History: Diabetes Mellitus, Eye Disorder, Hyperlipidemia Mother Family Medical History: Asthma, Hypertension, Pneumonia, Thyroid Disorder Additional Family Medical History / Comment(s): Anxiety, depression Brother(s) Family Medical History: Asthma Additional Family Medical History / Comment(s): 2 brothers with asthma General Exam - General Exam Comments Initial Comments: PHYSICAL EXAM: General Impression: Alert and oriented x3, not in acute distress HEENT: Normocephalic atraumatic, extra-ocular movements intact, pupils equal and reactive to light bilaterally, mucous membranes moist. Cardiovascular: Heart regular rate and rhythm Chest: Able to complete full sentences, no retractions, no tachypnea Abdomen: abdomen soft, non-tender, non-distended, no organomegaly Musculoskeletal: Pulses present and equal in all extremities, no peripheral edema Motor: no focal deficits noted Neurological: CN II-XII grossly intact, no focal motor or sensory deficits noted Skin: Intact with no visualized rashes Psych: Normal affect and mood Limitations: no limitations Course Vital Signs 10/28/24 08:06 Temperature 97.8 F Pulse Rate 72 Respiratory 18 Rate Blood Pressure 128/77 O2 Sat by Pulse 100 Oximetry Medical Decision Making - Medical Decision Making Was pt. sent in by a medical professional or institution (, PA, CHIEF II DISPATCHER, urgent care, hospital, or [facility]...) When possible be specific @ -No Did you speak to anyone other than the patient for history (EMS, parent, family, police, friend...)? What history was obtained from this source @ -No Did you review nursing and triage notes (agree or disagree)? Why? @ -I reviewed and agree with nursing and triage notes Were old charts reviewed (outside hosp., previous admission, EMS record, old EKG, old radiological studies, urgent care reports/EKG's, [facility] records)? Report findings @ -No old charts were reviewed Differential Diagnosis (chest pain, altered mental status, abdominal pain women, abdominal pain men, vaginal bleeding, musculoskeletal, weakness, fever, dyspnea, syncope, headache, dizziness, GI bleed, back pain, seizure, CVA, palpatations, mental health)? @ -Hyperemesis cyst gravidarum, molar , nausea vomiting EKG interpreted by me (3pts min.). @ -None done X-rays interpreted by me (1pt min.). @ -None done CT interpreted by me (1pt min.). @ -None done U/S interpreted by me (1pt. min.). @ -None done What testing was considered but not performed or refused? (CT, X-rays, U/S, labs)? Why? @ -None What meds were considered but not given or refused? Why? @ -None Was smoking cessation discussed for >3mins.? @ -No Were there social determinants of health that impacted care today? How? (Homelessness, low income, unemployed, alcoholism, drug addiction, transportation, low edu. Level, literacy, decrease access to med. care, penitentiary, rehab)? @ -No Was there de-escalation of care discussed even if they declined (Discuss DNR or withdrawal of care, Hospice)? DNR status @ -No What co-morbidities impacted this encounter? (DM, HTN, Smoking, COPD, CAD, Cancer, CVA, ARF, Chemo, Hep., AIDS, mental health diagnosis, sleep apnea, morbid obesity)? @ -None Was patient admitted / discharged? Hospital course, mention meds given and route, prescriptions, significant lab abnormalities, going to OR and other per tinent info. @ -Pain with nausea vomiting . Patient denies any obstetric complaints. Vital signs stable. Physical examination is benign. Labs unremarkable. Beta quant trending's and Reglan with improvement of symptoms. Patient discharged vies follow-up with OB/GYN PHYSICIAN. Given prescription for Diclegis. Did you discuss the management of the patient with other professionals (professionals i.e. , PA, CHIEF II DISPATCHER, lab, RT, psych nurse, social security specialist, plant maintenance technician, teacher, airline pilot/first officer, case technician)? Give summary @ -No Was critical care preformed (if so, how long)? @ -No Undiagnosed new problem with uncertain prognosis? @ -No Drug Therapy requiring intensive monitoring for toxicity (Heparin, Nitro, Insulin, Cardizem)? @ -No Were any procedures done? @ -No Diagnosis/symptom? Acute, or Chronic, or Acute on Chronic? Uncomplicated (without systemic symptoms) or Complicated (systemic symptoms)? @ -Nausea and vomiting in Side effects of treatment? @ -No Exacerbation, Progression, or Severe Exacerbation? @ -No Poses a threat to life or bodily function? How? (Chest pain, [place], [place], pneumonia, PE, COPD, DKA, ARF, appy, cholecystitis, CVA, Diverticulitis, Homicidal, Suicidal, threat to staff... and all critical care pts) @ -No - Lab Data Result diagrams: 10/28/24 08:18 10/28/24 08:18 Lab Results 10/28/24 10/28/24 10/28/24 Range/Units 08:18 08:18 08:18 WBC 9.29 (4.50-10.00) 10*3/uL RBC 4.05 L (4.10-5.20) 10*6/uL Hgb 12.6 (12.0-15.0) g/dL Hct 36.3 L (37.2-46.3) % MCV 89.6 (80.0-97.0) fL MCH 31.1 (27.0-32.0) pg MCHC 34.7 (32.0-37.0) g/dL Plt Count 303 (140-440) 10*3/uL MPV 9.7 (9.5-12.2) fL Immature Gran % (Auto) 0.4 % Neutrophils % 83.0 % Lymphocytes % 11.3 % Monocytes % 4.4 % Eosinophils % 0.6 % Basophils % 0.3 % Immature Gran # 0.04 (0.00-0.04) 10*3/uL Neutrophils # 7.70 (1.80-7.70) 10*3/uL Lymphocytes # 1.05 (0.90-5.00) 10*3/uL Monocytes # 0.41 (0.20-1.00) 10*3/uL Eosinophils # 0.06 (0.04-0.35) 10*3/uL Basophils # 0.03 (0.00-0.10) 10*3/uL PT 11.4 (10.0-12.5) sec INR 1.0 (<1.2) APTT 23.4 (22.0-30.0) sec Sodium 139 (137-145) mmol/L Potassium 3.8 (3.5-5.1) mmol/L Chloride 108 H (98-107) mmol/L Carbon Dioxide 21 L (22-30) mmol/L Anion Gap 10 mmol/L BUN 5 L (7-17) mg/dL Creatinine 0.63 (0.52-1.04) mg/dL Est GFR (CKD-EPI)AfAm >90 (>60 ml/min/1.73 sqM) Est GFR (CKD-EPI)NonAf >90 (>60 ml/min/1.73 sqM) Glucose 102 H (74-99) mg/dL Calcium 9.5 (8.4-10.2) mg/dL Total Bilirubin 0.9 (0.2-1.3) mg/dL AST 35 (14-36) U/L ALT 67 H (4-34) U/L Alkaline Phosphatase 86 (38-126) U/L Total Protein 7.4 (6.3-8.2) g/dL Albumin 4.3 (3.5-5.0) g/dL HCG, Quant 8536.4 mIU/mL Blood Type Blood Type Confirm Blood Type Recheck Bld Type Recheck Status Antibody Screen Spec Expiration Date 10/28/24 10/28/24 Range/Units 08:23 08:28 WBC (4.50-10.00) 10*3/uL RBC (4.10-5.20) 10*6/uL Hgb (12.0-15.0) g/dL Hct (37.2-46.3) % MCV (80.0-97.0) fL MCH (27.0-32.0) pg MCHC (32.0-37.0) g/dL Plt Count (140-440) 10*3/uL MPV (9.5-12.2) fL Immature Gran % (Auto) % Neutrophils % % Lymphocytes % % Monocytes % % Eosinophils % % Basophils % % Immature Gran # (0.00-0.04) 10*3/uL Neutrophils # (1.80-7.70) 10*3/uL Lymphocytes # (0.90-5.00) 10*3/uL Monocytes # (0.20-1.00) 10*3/uL Eosinophils # (0.04-0.35) 10*3/uL Basophils # (0.00-0.10) 10*3/uL PT (10.0-12.5) sec INR (<1.2) APTT (22.0-30.0) sec Sodium (137-145) mmol/L Potassium (3.5-5.1) mmol/L Chloride (98-107) mmol/L Carbon Dioxide (22-30) mmol/L Anion Gap mmol/L BUN (7-17) mg/dL Creatinine (0.52-1.04) mg/dL Est GFR (CKD-EPI)AfAm (>60 ml/min/1.73 sqM) Est GFR (CKD-EPI)NonAf (>60 ml/min/1.73 sqM) Glucose (74-99) mg/dL Calcium (8.4-10.2) mg/dL Total Bilirubin (0.2-1.3) mg/dL AST (14-36) U/L ALT (4-34) U/L Alkaline Phosphatase (38-126) U/L Total Protein (6.3-8.2) g/dL Albumin (3.5-5.0) g/dL HCG, Quant mIU/mL Blood Type A Positive Blood Type Confirm A Positive Blood Type Recheck No Previous Record Bld Type Recheck Status CABO Indicated Antibody Screen NEGATIVE Spec Expiration Date 10/31/20242317 Disposition Clinical Impression: Nausea/vomiting in Disposition: HOME SELF-CARE Condition: Fair Instructions (If sedation given, give patient instructions): Nausea and Vomiting in (ED) Additional Instructions: take vitamins Prescriptions: Doxylamine Succinate/Vit B6 [Abigis Dr 10-10 mg Tablet] 1 tab PO TID PRN #24 tab PRN Reason: Nausea And Vomiting Is patient prescribed a controlled substance at d/c from ED?: No Referrals: Wilda Martinez DO [Doctor of Osteopathic Medicine] - 1-2 days Time of Disposition: 09:30
[2024-10-28] MEDS: SODIUM CHLORIDE 0.9% 1,000 ML IV STA (08:38)
[2024-10-28] MEDS: METOCLOPRAMIDE 5 MG/ML 2 ML VIAL IVP STA (08:47)
[2024-10-28 08:49] LABS: Basophils # (A) 0.03 10*3/uL (0.00-0.10); Basophils % (A) 0.3 %; Eosinophils # (A) 0.06 10*3/uL (0.04-0.35); Eosinophils % (A) 0.6 %; HCT 36.3 % (37.2-46.3); HGB 12.6 g/dL (12.0-15.0); Lymphocytes # (A) 1.05 10*3/uL (0.90-5.00); Lymphocytes % (A) 11.3 %; MCH 31.1 pg (27.0-32.0); MCHC 34.7 g/dL (32.0-37.0); MCV 89.6 fL (80.0-97.0); Mean Platelet Volume 9.7 fL (9.5-12.2); Monocytes # (A) 0.41 10*3/uL (0.20-1.00); Monocytes % (A) 4.4 %; Platelet Count 303 10*3/uL (140-440); RBC 4.05 10*6/uL (4.10-5.20); RDW 13.2 % (11.5-14.5); WBC 9.29 10*3/uL (4.50-10.00)
[2024-10-28 08:59] LABS: ALT 67 U/L (4-34); AST 35 U/L (14-36); African American GFR (CKD) >90 (>60 ml/min/1.73 sqM); Albumin 4.3 g/dL (3.5-5.0); Alkaline Phosphatase 86 U/L (38-126); Anion Gap 10 mmol/L; Blood Urea Nitrogen 5 mg/dL (7-17); Calcium 9.5 mg/dL (8.4-10.2); Carbon Dioxide 21 mmol/L (22-30); Chloride 108 mmol/L (98-107); Glucose 102 mg/dL (74-99); Non-African American GFR(CKD) >90 (>60 ml/min/1.73 sqM); Potassium 3.8 mmol/L (3.5-5.1); Sodium 139 mmol/L (137-145); Total Bilirubin 0.9 mg/dL (0.2-1.3); Total Protein 7.4 g/dL (6.3-8.2)
[2024-10-28 09:04] LABS: Partial Thromboplastin Time 23.4 sec (22.0-30.0); Prothrombin Time 11.4 sec (10.0-12.5)
[2024-10-28 09:16] LABS: HCG,Quantitative Serum 8536.4 mIU/mL
[2024-10-28 10:02] VITALS: RESP 20
[2024-10-28 10:22] VITALS: BP 126/76; PULSE 76; TEMP 98
== END 2024-10-28 10:33 | disposition home or self-care (01) ==
LOC: EC 07:52
DX: O21.9 Vomiting of pregnancy, unspecified (principal); O99.331 Smoking (tobacco) complicating pregnancy, first trimester; F17.290 Nicotine dependence, other tobacco product, uncomplicated; Z88.8 Allergy status to other drugs, medicaments and biological substances; Z3A.01 Less than 8 weeks gestation of pregnancy
CPT/HCPCS: 36415; 86900; 86901; 80053; 85025; 85610; 85730; 86850; 84702; 99284; 96374; 96361; J2765

== ENCOUNTER 2024-10-30 16:11 | Emergency (ER) | payer OTHER ==
--- NOTE | 2024-10-30 17:06 | ED ---
General Adult HPI - General Chief complaint: Abdominal Pain Stated complaint: 6 weeks , NV/abd pain Time Seen by Provider: 10/30/24 16:28 Source: patient, RN notes reviewed Mode of arrival: ambulatory Limitations: no limitations - History of Present Illness Initial comments: This is a 24-year-old female, at 6 weeks gestation, presenting to emergency department for persistent nausea and vomiting during . Patient states that she was evaluated 2 times in the last week however has been having difficulty keeping down foods and liquids. Endorses mild left-sided abdominal cramping. Patient states that she was diagnosed with UTI earlier in the week however has not been taking antibiotics due to difficulty keeping down foods. denies vaginal bleeding, urinary symptoms. have attempted to take prescribed medications with minimal relief in symptoms. Previous cholecystectomy - Related Data Home Medications Medication Instructions Recorded Confirmed FLUoxetine HCL [PROzac] 20 mg PO HS 09/29/14 02/06/20 metFORMIN HCL ER [Glucophage XR] 500 mg PO HS 01/02/19 02/06/20 Previous Rx's Medication Instructions Recorded ALPRAZolam [Xanax] 0.5 mg PO BID PRN #6 tablet 02/06/20 Omeprazole [PriLOSEC] 40 mg PO DAILY #14 cap 03/20/20 Ondansetron Odt [Zofran Odt] 4 mg PO Q8HR PRN #10 tab 03/20/20 Cephalexin [Keflex] 500 mg PO Q6HR 10 Days #40 cap 02/03/21 Sulfamethox-Tmp 800-160Mg [Bactrim 1 tab PO Q12HR #20 tab 02/03/21 DS 800-160 mg] Ondansetron [Zofran ODT] 4 mg PO Q8HR PRN #15 tab 04/13/21 Ibuprofen [Motrin] 600 mg PO Q6HR PRN #30 tab 02/11/23 methylPREDNISolone Dose Pack 4 mg PO DIRECTED #1 packet 02/11/23 [Medrol Dose Pack] Cyclobenzaprine [Flexeril] 10 mg PO TID PRN #15 tab 05/31/23 Nitrofurantoin Monohyd/M-Cryst 100 mg PO Q12HR #14 cap 10/26/24 [Macrobid] Ondansetron Odt [Zofran Odt] 4 mg PO Q8HR PRN #10 tab 10/26/24 Doxylamine Succinate/Vit B6 1 tab PO TID PRN #24 tab 10/28/24 [D[address] 10-10 mg Tablet] Prochlorperazine Suppository 25 mg RECTAL BID #12 supp 10/30/24 [Compazine] Prochlorperazine [Compazine] 10 mg PO Q6H #28 tab 10/30/24 Allergies Allergy/AdvReac Type Severity Reaction Status Date / Time sertraline HCl [From Zoloft] Allergy Rash/Hives/ Verified 10/30/24 16:15 SOB Review of Systems ROS Statement: Those systems with pertinent positive or pertinent negative responses have been documented in the HPI. ROS Other: All systems not noted in ROS Statement are negative. Past Medical History Past Medical History: Asthma, GERD/Reflux, Sleep Apnea/CPAP/BIPAP Additional Past Medical History / Comment(s): bladder cyst -polycystic ovarian syndrome-ON METFORMIN, History of Any Multi-Drug Resistant Organisms: MRSA Date of last positivie culture/infection: 2012 MDRO Source:: right leg Past Surgical History: Adenoidectomy, Cholecystectomy, Tonsillectomy Additional Past Surgical History / Comment(s): ovarian cyst, pain procedures, Past Anesthesia/Blood Transfusion Reactions: Postoperative Nausea & Vomiting (PONV) Past Psychological History: ADD/ADHD, Anxiety, Depression Smoking Status: Vaper Past Alcohol Use History: Occasional Past Drug Use History: Marijuana - Past Family History Father Family Medical History: Diabetes Mellitus, Eye Disorder, Hyperlipidemia Mother Family Medical History: Asthma, Hypertension, Pneumonia, Thyroid Disorder Additional Family Medical History / Comment(s): Anxiety, depression Brother(s) Family Medical History: Asthma Additional Family Medical History / Comment(s): 2 brothers with asthma General Exam - General Exam Comments Initial Comments: Visual Physical Exam Vital signs reviewed General: Well-appearing, nontoxic, no acute distress. Head: Normocephalic, atraumatic Eyes: PERRLA, EOMI ENT: Airway patent Chest: Nonlabored breathing Skin: No visual rash, normal skin tone Neuro: Alert and oriented 3 Musculoskeletal: No gross abnormalities Limitations: no limitations General appearance: alert, in no apparent distress Neck exam: Present: normal inspection. Absent: tenderness, meningismus, lymphadenopathy Respiratory exam: Present: normal lung sounds bilaterally. Absent: respiratory distress, wheezes, rales, rhonchi, stridor Cardiovascular Exam: Present: regular rate, normal rhythm, normal heart sounds. Absent: systolic murmur, diastolic murmur, rubs, gallop, clicks GI/Abdominal exam: Present: soft, tenderness (mild LUQ), normal bowel sounds. Absent: distended, guarding, rebound, rigid Extremities exam: Present: normal inspection, full ROM, normal capillary refill. Absent: tenderness, pedal edema, joint swelling, calf tenderness Back exam: Present: normal inspection. Absent: CVA tenderness (R), CVA tenderness (L) Skin exam: Present: warm, dry, intact, normal color. Absent: rash Course Vital Signs 10/30/24 10/30/24 16:13 20:38 Temperature 97.9 F 97.8 F Pulse Rate 86 79 Respiratory 16 18 Rate Blood Pressure 118/78 118/79 O2 Sat by Pulse 97 98 Oximetry Medical Decision Making - Medical Decision Making Was pt. sent in by a medical professional or institution (, PA, [employer], urgent care, hospital, or intermediate...) When possible be specific @ -No Did you speak to anyone other than the patient for history (EMS, parent, family, police, friend...)? What history was obtained from this source @ -No Did you review nursing and triage notes (agree or disagree)? Why? @ -I reviewed and agree with nursing and triage notes Were old charts reviewed (outside hosp., previous admission, EMS record, old EKG, old radiological studies, urgent care reports/EKG's, intermediate records)? Report findings @ -No old charts were reviewed Differential Diagnosis (chest pain, altered mental status, abdominal pain women, abdominal pain men, vaginal bleeding, weakness, fever, dyspnea, syncope, headache, dizziness, GI bleed, back pain, seizure, CVA, palpatations, mental health, musculoskeletal)? @ -Differential Abdominal Pain Women: Appendicitis, Cholecystitis, diverticulosis, ischemic bowel, pancreatitis, hepatitis, UTI, gastroenteritis, AAA, incarcerated hernia, bowel obstruction, constipation, inflammatory bowel, hepatitis, peptic ulcer disease, splenic infarction, perforated viscus, vulvitis, ovarian torsion, PID, kidney stone, placenta abruption, this is not meant to be an all-inclusive list EKG interpreted by me (3pts min.). @ -None X-rays interpreted by me (1pt min.). @ -None done CT interpreted by me (1pt min.). @ -None done U/S interpreted by me (1pt. min.). @ -None done What testing was considered but not performed or refused? (CT, X-rays, U/S, labs)? Why? @ -None What meds were considered but not given or refused? Why? @ -None Did you discuss the management of the patient with other professionals (professionals i.e. , PA, [employer], lab, RT, psych nurse, renal social worker, siene maker, teacher, workplace rehabilitation officer, case management associate)? Give summary @ -No Was smoking cessation discussed for >3mins.? @ -No Was critical care preformed (if so, how long)? @ -No Were there social determinants of health that impacted care today? How? (Homelessness, low income, unemployed, alcoholism, drug addiction, transportation, low edu. Level, literacy, decrease access to med. care, residential, rehab)? @ -No Was there de-escalation of care discussed even if they declined (Discuss DNR or withdrawal of care, Hospice)? DNR status @ -No What co-morbidities impacted this encounter? (DM, HTN, Smoking, COPD, CAD, Cancer, CVA, ARF, Chemo, Hep., AIDS, mental health diagnosis, sleep apnea, morbid obesity)? @ -None Was patient admitted / discharged? Hospital course, mention meds given and route, prescriptions, significant lab abnormalities, going to OR and other pertinent info. @ -Discharged. 24-year-old female presents emergency department with acute nausea and vomiting and abdominal pain during . Overall patient is well-appearing. Initial vitals are stable. Patient has mild left upper quadrant tenderness to palpation. Patient is provided with IV fluids and antiemetics. Labs reveal reactive leukocytosis of 14.8 with left shift 12.1 secondary to emesis. CMP is unremarkable. [place] [address]. Urinalysis consistent with dehydration with 3+ ketones and trace protein. Patient's urine culture from 10/26/2024 reviewed with no signs of bacterial growth. Reevaluation after medications patient states that she is feeling well. She is provided with prescription for Compazine and instructed to follow-up with OB. Return parameters discussed. Case discussed with Dr. Benavidez Undiagnosed new problem with uncertain prognosis? @ -No Drug Therapy requiring intensive monitoring for toxicity (Heparin, Nitro, Insulin, Cardizem)? @ -No Were any procedures done? @ -No Diagnosis/symptom? @ -Dehydration, acute nausea vomiting during Acute, or Chronic, or Acute on Chronic? @ -Acute Uncomplicated (without systemic symptoms) or Complicated (systemic symptoms)? @ -Uncomplicated Side effects of treatment? @ -No Exacerbation, Progression, or Severe Exacerbation? @ -No Poses a threat to life or bodily function? How? (Chest pain, USA, CA, pneumonia, PE, COPD, DKA, ARF, appy, cholecystitis, CVA, Diverticulitis, Homicidal, Suicidal, threat to staff... and all critical care pts) @ -No - Lab Data Result diagrams: 10/30/24 18:12 10/30/24 18:12 Lab Results 10/30/24 10/30/24 10/30/24 Range/Units 17:10 18:12 18:12 WBC 14.82 H (4.50-10.00) 10*3/uL RBC 4.19 (4.10-5.20) 10*6/uL Hgb 13.0 (12.0-15.0) g/dL Hct 38.1 (37.2-46.3) % MCV 90.9 (80.0-97.0) fL MCH 31.0 (27.0-32.0) pg MCHC 34.1 (32.0-37.0) g/dL Plt Count 320 (140-440) 10*3/uL MPV 9.7 (9.5-12.2) fL Immature Gran % (Auto) 0.4 % Neutrophils % 82.2 % Lymphocytes % 11.2 % Monocytes % 5.5 % Eosinophils % 0.5 % Basophils % 0.2 % Immature Gran # 0.06 H (0.00-0.04) 10*3/uL Neutrophils # 12.18 H (1.80-7.70) 10*3/uL Lymphocytes # 1.66 (0.90-5.00) 10*3/uL Monocytes # 0.82 (0.20-1.00) 10*3/uL Eosinophils # 0.07 (0.04-0.35) 10*3/uL Basophils # 0.03 (0.00-0.10) 10*3/uL Sodium 140 (137-145) mmol/L Potassium 4.1 (3.5-5.1) mmol/L Chloride 105 (98-107) mmol/L Carbon Dioxide 24 (22-30) mmol/L Anion Gap 11 mmol/L BUN 4 L (7-17) mg/dL Creatinine 0.58 (0.52-1.04) mg/dL Est GFR (CKD-EPI)AfAm >90 (>60 ml/min/1.73 sqM) Est GFR (CKD-EPI)NonAf >90 (>60 ml/min/1.73 sqM) Glucose 83 (74-99) mg/dL Calcium 9.6 (8.4-10.2) mg/dL Magnesium 2.1 (1.6-2.3) mg/dL Total Bilirubin 0.6 (0.2-1.3) mg/dL AST 26 (14-36) U/L ALT 69 H (4-34) U/L Alkaline Phosphatase 92 (38-126) U/L Total Protein 7.6 (6.3-8.2) g/dL Albumin 4.5 (3.5-5.0) g/dL Amylase 38 (30-110) U/L Lipase 79 (23-300) U/L HCG, Quant 68954.0 mIU/mL Urine Color Brown Urine Appearance Cloudy H (Clear) Urine pH 7.0 (5.0-8.0) Ur Specific [place] 1.028 (1.001-1.035) Urine Protein Trace H (Negative) Urine Glucose (UA) Negative (Negative) Urine Ketones 3+ H (Negative) Urine Blood Negative (Negative) Urine Nitrite Negative (Negative) Urine Bilirubin Negative (Negative) Urine Urobilinogen 3.0 (<2.0) mg/dL Ur Leukocyte Esterase Moderate H (Negative) Urine RBC 7 H (0-5) /hpf Urine WBC 14 H (0-5) /hpf Ur Squamous Epith Cells 20 H (0-4) /hpf Calcium Oxalate Crystal Occasional H (None) /hpf Urine Bacteria Rare H (None) /hpf Urine Mucus Many H (None) /hpf Disposition Clinical Impression: Nausea and vomiting during Disposition: HOME SELF-CARE Condition: Stable Instructions (If sedation given, give patient instructions): Nausea and Vomiting in (ED) Additional Instructions: Please return to the Emergency Department if symptoms worsen or any other concerns. It is recommended that you continue to take vitamin B6 and or with doxyalamine for nausea (also known as diclegis). If this does not aid in your symptoms try the prescribed Reglan. If added Reglan does not help add Benadryl and if Benadryl does not work add prescribed Zofran. Prescriptions: Prochlorperazine [Compazine] 10 mg PO Q6H #28 tab Prochlorperazine Suppository [Compazine] 25 mg RECTAL BID #12 supp Is patient prescribed a controlled substance at d/c from ED?: No Referrals: Adama Valles [Primary Care Provider] - 1-2 days Time of Disposition: 19:19
[2024-10-30 17:19] LABS: Appearance,Urine Cloudy (Clear); Bacteria,Urine Rare /hpf; Bilirubin,Urine Negative (Negative); Blood,Urine Negative (Negative); Calcium Oxalate Crystals,Urine Occasional /hpf; Color,Urine Brown; Glucose,Urine (UA) Negative (Negative); Ketones,Urine 3+ (Negative); Leukocyte Esterase,Urine Moderate (Negative); Mucus,Urine Many /hpf; Nitrite,Urine Negative (Negative); Protein,Urine Trace (Negative); RBC,Urine 7 /hpf (0-5); Specific Gravity,Urine 1.028 (1.001-1.035); Squamous Epithelial Cell,Urine 20 /hpf (0-4); WBC,Urine 14 /hpf (0-5)
[2024-10-30 18:30] LABS: Basophils # (A) 0.03 10*3/uL (0.00-0.10); Basophils % (A) 0.2 %; Eosinophils # (A) 0.07 10*3/uL (0.04-0.35); Eosinophils % (A) 0.5 %; HCT 38.1 % (37.2-46.3); Lymphocytes # (A) 1.66 10*3/uL (0.90-5.00); Lymphocytes % (A) 11.2 %; MCHC 34.1 g/dL (32.0-37.0); MCV 90.9 fL (80.0-97.0); Mean Platelet Volume 9.7 fL (9.5-12.2); Monocytes # (A) 0.82 10*3/uL (0.20-1.00); Monocytes % (A) 5.5 %; Neutrophils # (A) 12.18 10*3/uL (1.80-7.70); Neutrophils % (A) 82.2 %; Platelet Count 320 10*3/uL (140-440); RBC 4.19 10*6/uL (4.10-5.20); RDW 13.3 % (11.5-14.5); WBC 14.82 10*3/uL (4.50-10.00)
[2024-10-30] MEDS: SODIUM CHLORIDE 0.9% 1,000 ML IV ONE (18:38)
[2024-10-30] MEDS: ONDANSETRON 4 MG/2 ML VIAL IVP STA (18:38)
[2024-10-30 18:42] LABS: ALT 69 U/L (4-34); AST 26 U/L (14-36); African American GFR (CKD) >90 (>60 ml/min/1.73 sqM); Albumin 4.5 g/dL (3.5-5.0); Alkaline Phosphatase 92 U/L (38-126); Amylase 38 U/L (30-110); Anion Gap 11 mmol/L; Blood Urea Nitrogen 4 mg/dL (7-17); Calcium 9.6 mg/dL (8.4-10.2); Carbon Dioxide 24 mmol/L (22-30); Chloride 105 mmol/L (98-107); Glucose 83 mg/dL (74-99); Lipase 79 U/L (23-300); Magnesium 2.1 mg/dL (1.6-2.3); Non-African American GFR(CKD) >90 (>60 ml/min/1.73 sqM); Potassium 4.1 mmol/L (3.5-5.1); Sodium 140 mmol/L (137-145); Total Bilirubin 0.6 mg/dL (0.2-1.3); Total Protein 7.6 g/dL (6.3-8.2)
[2024-10-30] MEDS: SODIUM CHLORIDE 0.9% 500 ML 500 ML IV STA (19:34)
[2024-10-30] MEDS: PROCHLORPERAZINE INJ 10 MG/2 ML VIAL IVP STA (20:02)
[2024-10-30 20:41] VITALS: BP 118/79; PULSE 79; RESP 18; TEMP 97.8
== END 2024-10-30 20:42 | disposition home or self-care (01) ==
LOC: EC 16:11
DX: O21.9 Vomiting of pregnancy, unspecified (principal); O99.331 Smoking (tobacco) complicating pregnancy, first trimester; F17.290 Nicotine dependence, other tobacco product, uncomplicated; Z88.8 Allergy status to other drugs, medicaments and biological substances; Z3A.01 Less than 8 weeks gestation of pregnancy
CPT/HCPCS: 36415; 80053; 82150; 83690; 83735; 85025; 81001; 84702; 87086; 99284; 96374; 96375; 96361 ×2; J0780; J2405

== ENCOUNTER 2024-11-14 09:31 | Emergency (ER) | payer OTHER ==
[2024-11-14 09:59] VITALS: RESP 18
--- NOTE | 2024-11-14 10:25 | ED ---
Nausea/Vomiting/Diarrhea HPI - General Chief complaint: Nausea/Vomiting/Diarrhea Stated complaint: N/V/D(8 weeks ) Time Seen by Provider: 11/14/24 10:24 Source: patient, RN notes reviewed, old records reviewed Mode of arrival: ambulatory Limitations: no limitations - History of Present Illness Initial comments: 24-year-old G1, P0 approximately 8 weeks gestation female presenting to the ER for evaluation of nausea and vomiting. Last menstrual cycle 09 14 24. patient states since finding out she was she has been having extreme nausea and vomiting. She has been unable to keep liquids or crackers down. She has been seen in this emergency department numerous times for similar complaint. She has been discharged with Zofran and Compazine but states she has not taken Compazine given side effects and concern of harm. She also was endorsing a crampy upper abdominal discomfort. She denies any lower abdominal pain/cramping or abnormal vaginal bleeding or discharge. She had ultrasound completed at [facility] and was told everything was "normal". She has yet to follow-up with an EXAMINER OF CURRENCY. She is scheduled to follow-up at [facility] soon. She denies any fevers or chills. Denies any hematemesis, coffee-ground emesis, diarrhea/constipation. Patient denies any other complaints. Does admit to smoking marijuana as she believes this may aid with symptoms - Related Data Home Medications Medication Instructions Recorded Confirmed FLUoxetine HCL [PROzac] 20 mg PO HS 09/29/14 02/06/20 metFORMIN HCL ER [Glucophage XR] 500 mg PO HS 01/02/19 02/06/20 Previous Rx's Medication Instructions Recorded ALPRAZolam [Xanax] 0.5 mg PO BID PRN #6 tablet 02/06/20 Omeprazole [PriLOSEC] 40 mg PO DAILY #14 cap 03/20/20 Ondansetron Odt [Zofran Odt] 4 mg PO Q8HR PRN #10 tab 03/20/20 Cephalexin [Keflex] 500 mg PO Q6HR 10 Days #40 cap 02/03/21 Sulfamethox-Tmp 800-160Mg [Bactrim 1 tab PO Q12HR #20 tab 02/03/21 DS 800-160 mg] Ondansetron [Zofran ODT] 4 mg PO Q8HR PRN #15 tab 04/13/21 Ibuprofen [Motrin] 600 mg PO Q6HR PRN #30 tab 02/11/23 methylPREDNISolone Dose Pack 4 mg PO DIRECTED #1 packet 02/11/23 [Medrol Dose Pack] Cyclobenzaprine [Flexeril] 10 mg PO TID PRN #15 tab 05/31/23 Nitrofurantoin Monohyd/M-Cryst 100 mg PO Q12HR #14 cap 10/26/24 [Macrobid] Ondansetron Odt [Zofran Odt] 4 mg PO Q8HR PRN #10 tab 10/26/24 Doxylamine Succinate/Vit B6 1 tab PO TID PRN #24 tab 10/28/24 [Diclegis Dr 10-10 mg Tablet] Prochlorperazine Suppository 25 mg RECTAL BID #12 supp 10/30/24 [Compazine] Prochlorperazine [Compazine] 10 mg PO Q6H #28 tab 10/30/24 Ondansetron Odt [Zofran Odt] 4 mg PO Q8HR PRN #10 tab 11/14/24 Hxj-Vnff-Qewvg Acid 1 each PO DAILY #30 cap 11/14/24 [-U Capsule] Pyridoxine HCl (Vitamin B6) 10 mg PO BID PRN #15 tab 11/14/24 [Vitamin B-6] Allergies Allergy/AdvReac Type Severity Reaction Status Date / Time sertraline HCl [From Zoloft] Allergy Rash/Hives/ Verified 11/14/24 09:58 SOB Review of Systems ROS Statement: Those systems with pertinent positive or pertinent negative responses have been documented in the HPI. ROS Other: All systems not noted in ROS Statement are negative. Past Medical History Past Medical History: Asthma, GERD/Reflux, Sleep Apnea/CPAP/BIPAP Additional Past Medical History / Comment(s): bladder cyst -polycystic ovarian syndrome-ON METFORMIN, History of Any Multi-Drug Resistant Organisms: MRSA Date of last positivie culture/infection: 2012 MDRO Source:: right leg Past Surgical History: Adenoidectomy, Cholecystectomy, Tonsillectomy Additional Past Surgical History / Comment(s): ovarian cyst, pain procedures, Past Anesthesia/Blood Transfusion Reactions: Postoperative Nausea & Vomiting ( PONV) Past Psychological History: ADD/ADHD, Anxiety, Depression Smoking Status: Vaper Past Alcohol Use History: Occasional Past Drug Use History: Marijuana - Past Family History Father Family Medical History: Diabetes Mellitus, Eye Disorder, Hyperlipidemia Mother Family Medical History: Asthma, Hypertension, Pneumonia, Thyroid Disorder Additional Family Medical History / Comment(s): Anxiety, depression Brother(s) Family Medical History: Asthma Additional Family Medical History / Comment(s): 2 brothers with asthma General Exam Limitations: no limitations General appearance: alert, in no apparent distress Respiratory exam: Present: normal lung sounds bilaterally. Absent: respiratory distress, wheezes, rales, rhonchi, stridor Cardiovascular Exam: Present: regular rate, normal rhythm, normal heart sounds. Absent: systolic murmur, diastolic murmur, rubs, gallop, clicks GI/Abdominal exam: Present: soft, normal bowel sounds. Absent: distended, tenderness, guarding, rebound, rigid Neurological exam: Present: alert, oriented X3, CN II-XII intact Skin exam: Present: warm, dry, intact, normal color. Absent: rash Course Vital Signs 11/14/24 11/14/24 11/14/24 09:56 10:29 12:58 Pulse Rate 67 84 62 Respiratory 18 18 18 Rate Blood Pressure 128/79 123/63 143/70 O2 Sat by Pulse 100 99 96 Oximetry Medical Decision Making - Medical Decision Making Was pt. sent in by a medical professional or institution ([facility]EL Torres, [employer], urgent care, hospital, or group home...) When possible be specific @ -No Did you speak to anyone other than the patient for history (EMS, parent, family, police, friend...)? What history was obtained from this source @ -No Did you review nursing and triage notes (agree or disagree)? Why? @ -I reviewed and agree with nursing and triage notes Were old charts reviewed (outside hosp., previous admission, EMS record, old EKG, old radiological studies, urgent care reports/EKG's, group home records)? Report findings @ -Prior ER visits] Differential Diagnosis (chest pain, altered mental status, abdominal pain women, abdominal pain men, vaginal bleeding, weakness, fever, dyspnea, syncope, headache, dizziness, GI bleed, back pain, seizure, CVA, palpatations, mental health, musculoskeletal)? @ -Cannabis hyperemesis syndrome, gastroenteritis, viral illness, , pancreatitis... This list is not meant to be all-inclusive EKG interpreted by me (3pts min.). @ -None done X-rays interpreted by me (1pt min.). @ -None done CT interpreted by me (1pt min.). @ -None done U/S interpreted by me (1pt. min.). @ -None done What testing was considered but not performed or refused? (CT, X-rays, U/S, labs)? Why? @ -None What meds were considered but not given or refused? Why? @ -None Did you discuss the management of the patient with other professionals (professionals i.e. Dr., PA, JAVA TECH LEAD, lab, RT, psych nurse, social media marketing analyst, produce specialist, teacher, tank officer, medical case worker)? Give summary @ -No Was smoking cessation discussed for >3mins.? @ -I discussed smoking cessation for greater than 3 minutes. The risk of smoking were discussed with the patient including but not limited to risks of cancer, stroke, coronary artery disease and COPD. Also discussed with patient were multiple methods of quitting smoking. Lastly we discussed the financial cost of smoking. Was critical care preformed (if so, how long)? @ -No Were there social determinants of health that impacted care today? How? (Homelessness, low income, unemployed, alcoholism, drug addiction, transportation, low edu. Level, literacy, decrease access to med. care, correction, rehab)? @ -No Was there de-escalation of care discussed even if they declined (Discuss DNR or withdrawal of care, Hospice)? DNR status @ -No What co-morbidities impacted this encounter? (DM, HTN, Smoking, COPD, CAD, Cancer, CVA, ARF, Chemo, Hep., AIDS, mental health diagnosis, sleep apnea, morbid obesity)? @ -, marijuana use Was patient admitted / discharged? Hospital course, mention meds given and route, prescriptions, significant lab abnormalities, going to OR and other pertinent info. @ -Discharged. 24 year old female presenting to the ER for evaluation nausea and vomiting. Vital signs stable. Patient in no signs of acute distress nontoxic-appearing. No obstetrical complaints. Laboratory studies unimpres sive. Serum hCG 64,379. Urinalysis with trace protein and 1+ ketones likely due to dehydration. UDS positive for THC, this may be contributing to symptoms. Patient provided with symptomatic treatment with IV fluids, Zofran, pyridoxine, and tums. Upon reevaluation, patient reporting no reoccurring bouts of emesis but continued complaining of nausea. Patient p.o. challenged and tolerating bayron crackers and water. Given repeated ER visits for similar complaint admission was offered to patient for intractable nausea vomiting. She refused stating she would like to be discharged. Work note provided. Zofran and pyridoxine prescribed. I had a lengthy discussion with patient regarding ma rijuana use and importance of cessation during and risks to fetus. I also discussed with patient this may be contributing to symptoms. I advised close follow-up with EXAMINER OF CURRENCY, referral given. Return parameters discussed. Patient discharged in stable condition. Patient verbally expressed understanding and agreement with care plan. Case discussed with ED attending, Dr. Martin. Undiagnosed new problem with uncertain prognosis? @ -No Drug Therapy requiring intensive monitoring for toxicity (Heparin, Nitro, Insulin, Cardizem)? @ -No Were any procedures done? @ -No Diagnosis/symptom? @ -Nausea and vomiting / Acute, or Chronic, or Acute on Chronic? @ -Acute Uncomplicated (without systemic symptoms) or Complicated (systemic symptoms)? @ -Complicated Side effects of treatment? @ -No Exacerbation, Progression, or Severe Exacerbation? @ -No Poses a threat to life or bodily function? How? (Chest pain, USA, DC, pneumonia, PE, COPD, DKA, ARF, appy, cholecystitis, CVA, Diverticulitis, Homicidal, Suicidal, threat to staff... and all critical care pts) @ -Low - Lab Data Result diagrams: 11/14/24 10:44 11/14/24 10:44 Lab Results 11/14/24 11/14/24 11/14/24 Range/Units 10:44 10:44 10:44 WBC 9.36 (4.50-10.00) 10*3/uL RBC 4.06 L (4.10-5.20) 10*6/uL Hgb 12.6 (12.0-15.0) g/dL Hct 37.3 (37.2-46.3) % MCV 91.9 (80.0-97.0) fL MCH 31.0 (27.0-32.0) pg MCHC 33.8 (32.0-37.0) g/dL Plt Count 281 (140-440) 10*3/uL MPV 9.3 L (9.5-12.2) fL Immature Gran % (Auto) 0.3 % Neutrophils % 83.9 % Lymphocytes % 9.8 % Monocytes % 5.0 % Eosinophils % 0.6 % Basophils % 0.4 % Immature Gran # 0.03 (0.00-0.04) 10*3/uL Neutrophils # 7.84 H (1.80-7.70) 10*3/uL Lymphocytes # 0.92 (0.90-5.00) 10*3/uL Monocytes # 0.47 (0.20-1.00) 10*3/uL Eosinophils # 0.06 (0.04-0.35) 10*3/uL Basophils # 0.04 (0.00-0.10) 10*3/uL Sodium 138 (137-145) mmol/L Potassium 4.0 (3.5-5.1) mmol/L Chloride 103 (98-107) mmol/L Carbon Dioxide 23 (22-30) mmol/L Anion Gap 12 mmol/L BUN 6 L (7-17) mg/dL Creatinine 0.55 (0.52-1.04) mg/dL Est GFR (CKD-EPI)AfAm >90 (>60 ml/min/1.73 sqM) Est GFR (CKD-EPI)NonAf >90 (>60 ml/min/1.73 sqM) Glucose 86 (74-99) mg/dL Calcium 9.6 (8.4-10.2) mg/dL Total Bilirubin 0.5 (0.2-1.3) mg/dL AST 22 (14-36) U/L ALT 51 H (4-34) U/L Alkaline Phosphatase 79 (38-126) U/L Total Protein 7.1 (6.3-8.2) g/dL Albumin 4.2 (3.5-5.0) g/dL Lipase 111 (23-300) U/L HCG, Quant 55855.0 mIU/mL Urine Color Yellow Urine Appearance Turbid H (Clear) Urine pH 7.5 (5.0-8.0) Ur Specific [place] 1.022 (1.001-1.035) Urine Protein Trace H (Negative) Urine Glucose (UA) Negative (Negative) Urine Ketones 1+ H (Negative) Urine Blood Negative (Negative) Urine Nitrite Negative (Negative) Urine Bilirubin Negative (Negative) Urine Urobilinogen 2.0 (<2.0) mg/dL Ur Leukocyte Esterase Small H (Negative) Urine RBC 1 (0-5) /hpf Ur Squamous Epith Cells 8 H (0-4) /hpf Amorphous Sediment Few H (None) /hpf Urine Mucus Few H (None) /hpf Urine Opiates Screen (NotDetected) Ur Oxycodone Screen (NotDetected) Urine Methadone Screen (NotDetected) Ur Barbiturates Screen (NotDetected) U Tricyclic Antidepress (NotDetected) Ur Phencyclidine Scrn (NotDetected) Ur Amphetamines Screen (NotDetected) U Methamphetamines Scrn (NotDetected) U Benzodiazepines Scrn (NotDetected) Urine Cocaine Screen (NotDetected) U Marijuana (THC) Screen (NotDetected) 11/14/24 Range/Units 10:44 WBC (4.50-10.00) 10*3/uL RBC (4.10-5.20) 10*6/uL Hgb (12.0-15.0) g/dL Hct (37.2-46.3) % MCV (80.0-97.0) fL MCH (27.0-32.0) pg MCHC (32.0-37.0) g/dL Plt Count (140-440) 10*3/uL MPV (9.5-12.2) fL Immature Gran % (Auto) % Neutrophils % % Lymphocytes % % Monocytes % % Eosinophils % % Basophils % % Immature Gran # (0.00-0.04) 10*3/uL Neutrophils # (1.80-7.70) 10*3/uL Lymphocytes # (0.90-5.00) 10*3/uL Monocytes # (0.20-1.00) 10*3/uL Eosinophils # (0.04-0.35) 10*3/uL Basophils # (0.00-0.10) 10*3/uL Sodium (137-145) mmol/L Potassium (3.5-5.1) mmol/L Chloride (98-107) mmol/L Carbon Dioxide (22-30) mmol/L Anion Gap mmol/L BUN (7-17) mg/dL Creatinine (0.52-1.04) mg/dL Est GFR (CKD-EPI)AfAm (>60 ml/min/1.73 sqM) Est GFR (CKD-EPI)NonAf (>60 ml/min/1.73 sqM) Glucose (74-99) mg/dL Calcium (8.4-10.2) mg/dL Total Bilirubin (0.2-1.3) mg/dL AST (14-36) U/L ALT (4-34) U/L Alkaline Phosphatase (38-126) U/L Total Protein (6.3-8.2) g/dL Albumin (3.5-5.0) g/dL Lipase (23-300) U/L HCG, Quant mIU/mL Urine Color Urine Appearance (Clear) Urine pH (5.0-8.0) Ur Specific [place] (1.001-1.035) Urine Protein (Negative) Urine Glucose (UA) (Negative) Urine Ketones (Negative) Urine Blood (Negative) Urine Nitrite (Negative) Urine Bilirubin (Negative) Urine Urobilinogen (<2.0) mg/dL Ur Leukocyte Esterase (Negative) Urine RBC (0-5) /hpf Ur Squamous Epith Cells (0-4) /hpf Amorphous Sediment (None) /hpf Urine Mucus (None) /hpf Urine Opiates Screen Not Detected (NotDetected) Ur Oxycodone Screen Not Detected (NotDetected) Urine Methadone Screen Not Detected (NotDetected) Ur Barbiturates Screen Not Detected (NotDetected) U Tricyclic Antidepress Not Detected (NotDetected) Ur Phencyclidine Scrn Not Detected (NotDetected) Ur Amphetamines Screen Not Detected (NotDetected) U Methamphetamines Scrn Not Detected (NotDetected) U Benzodiazepines Scrn Not Detected (NotDetected) Urine Cocaine Screen Not Detected (NotDetected) U Marijuana (THC) Screen Detected H (NotDetected) Disposition Clinical Impression: Nausea and vomiting during Disposition: HOME SELF-CARE Condition: Stable Instructions (If sedation given, give patient instructions): Acute Nausea and Vomiting (ED) Additional Instructions: Follow-up with EXAMINER OF CURRENCY. Return to the ER for any new or worsening concerns. Prescriptions: Xio-Nqmq-Pyaai Acid [-U Capsule] 1 each PO DAILY #30 cap Pyridoxine HCl (Vitamin B6) [Vitamin B-6] 10 mg PO BID PRN #15 tab PRN Reason: Nausea Ondansetron Odt [Zofran Odt] 4 mg PO Q8HR PRN #10 tab PRN Reason: Nausea Is patient prescribed a controlled substance at d/c from ED?: No Referrals: Adama Valles [Primary Care Provider] - 1-2 days Radha Rolon MD [STAFF PHYSICIAN] - 1-2 days Time of Disposition: 12:56
[2024-11-14] MEDS: SODIUM CHLORIDE 0.9% 1,000 ML IV ONE (10:44)
[2024-11-14] MEDS: ONDANSETRON 4 MG/2 ML VIAL IVP STA (10:45)
[2024-11-14] MEDS: PYRIDOXINE 100 MG/ML 1 ML VIAL IVP STA (10:46)
[2024-11-14 11:08] LABS: Basophils # (A) 0.04 10*3/uL (0.00-0.10); Basophils % (A) 0.4 %; Eosinophils # (A) 0.06 10*3/uL (0.04-0.35); Eosinophils % (A) 0.6 %; HCT 37.3 % (37.2-46.3); HGB 12.6 g/dL (12.0-15.0); Lymphocytes # (A) 0.92 10*3/uL (0.90-5.00); Lymphocytes % (A) 9.8 %; MCHC 33.8 g/dL (32.0-37.0); MCV 91.9 fL (80.0-97.0); Mean Platelet Volume 9.3 fL (9.5-12.2); Monocytes # (A) 0.47 10*3/uL (0.20-1.00); Neutrophils # (A) 7.84 10*3/uL (1.80-7.70); Neutrophils % (A) 83.9 %; Platelet Count 281 10*3/uL (140-440); RBC 4.06 10*6/uL (4.10-5.20); RDW 13.6 % (11.5-14.5); WBC 9.36 10*3/uL (4.50-10.00)
[2024-11-14 11:20] LABS: Amorphous Sediment,Urine Few /hpf; Appearance,Urine Turbid (Clear); Bilirubin,Urine Negative (Negative); Blood,Urine Negative (Negative); Color,Urine Yellow; Glucose,Urine (UA) Negative (Negative); Ketones,Urine 1+ (Negative); Leukocyte Esterase,Urine Small (Negative); Mucus,Urine Few /hpf; Nitrite,Urine Negative (Negative); PH, Urine 7.5 (5.0-8.0); Protein,Urine Trace (Negative); RBC,Urine 1 /hpf (0-5); Specific Gravity,Urine 1.022 (1.001-1.035); Squamous Epithelial Cell,Urine 8 /hpf (0-4)
[2024-11-14 11:22] LABS: ALT 51 U/L (4-34); AST 22 U/L (14-36); African American GFR (CKD) >90 (>60 ml/min/1.73 sqM); Albumin 4.2 g/dL (3.5-5.0); Alkaline Phosphatase 79 U/L (38-126); Anion Gap 12 mmol/L; Blood Urea Nitrogen 6 mg/dL (7-17); Calcium 9.6 mg/dL (8.4-10.2); Carbon Dioxide 23 mmol/L (22-30); Chloride 103 mmol/L (98-107); Glucose 86 mg/dL (74-99); Lipase 111 U/L (23-300); Non-African American GFR(CKD) >90 (>60 ml/min/1.73 sqM); Sodium 138 mmol/L (137-145); Total Bilirubin 0.5 mg/dL (0.2-1.3); Total Protein 7.1 g/dL (6.3-8.2)
[2024-11-14] MEDS: CALCIUM CARBONATE 500 MG CHEWABLE PO STA (11:44)
[2024-11-14 12:31] LABS: Amphetamine Screen,Urine Not Detected (NotDetected); Barbiturate Screen,Urine Not Detected (NotDetected); Benzodiazepines Screen,Urine Not Detected (NotDetected); Cocaine Screen,Urine Not Detected (NotDetected); Methadone Screen, Urine Not Detected (NotDetected); Opiate Screen,Urine Not Detected (NotDetected); Oxycodone Screen, Urine Not Detected (NotDetected); Phencyclidine Screen,Urine Not Detected (NotDetected); Tricyclic Antidepressant,Urine Not Detected (NotDetected); Urn Cannabinoid Scrn Detected (NotDetected)
[2024-11-14 13:00] VITALS: BP 143/70; PULSE 62
== END 2024-11-14 13:07 | disposition home or self-care (01) ==
LOC: EC 09:31
DX: O21.9 Vomiting of pregnancy, unspecified (principal); O99.331 Smoking (tobacco) complicating pregnancy, first trimester; F17.290 Nicotine dependence, other tobacco product, uncomplicated; Z88.8 Allergy status to other drugs, medicaments and biological substances; Z3A.08 8 weeks gestation of pregnancy
CPT/HCPCS: 36415; 80053; 83690; 85025; 81001; 84702; 80306; 99284; 96374; 96375; 96361; J3415; J2405

== ENCOUNTER → 2024-12-11 | Outpatient (CLI) | payer OTHER ==
--- NOTE | 2024-12-11 14:55 | US ---
EXAMINATION TYPE: Transabdominal DATE OF EXAM: 12/11/2024 1:59 PM COMPARISON: NONE CLINICAL INDICATION: Female, 24 years old with history of Z34.90 ENCNTR FOR SUPRVSN OF NORMAL PREGNAN CY, UNS; Patient has PCOS, G1, nausea, cramping, no bleeding TECHNIQUE: OBTA with grayscale and color Doppler imaging including first trimester . FINDINGS: EXAM MEASUREMENTS: GESTATIONAL AGE / DATING Physician Established: (13 weeks/1 days) EDC: 06/17/2025 Dates by LMP: LMP unknown Dates by First Scan: (12 weeks/0 days) EDC: 06/25/2025 Dates by Current Scan for: (12 weeks/1 days) EDC: 06/24/2025 MATERNAL ANATOMY Uterus: 12.0 x 7.1 x 6.2cm Right Ovary: 2.2 x 3.4 x 2.0cm Left Ovary: 3.1 x 2.3 x 2.0cm Post CDS / Adnexa: wnl Presence of free fluid: no Presence of corpus luteal cyst: right = 1.7 x 2.1 x 1.8cm Presence of subchorionic bleed: no GESTATION / SURVEY CRL: 5.3cm (12 weeks/1 days) Gestational Sac morphology: Normal Gestational Sac MSD: wnl Yolk Sac (normal less than 6mm): not seen Cardiac Activity/Heart Rate: 147 bpm Rhythm: Normal IUP: Viable IUP Age Appropriate Anatomy Cord Insertion: obscured Limbs: wnl Calvarium: wnl Date of LMP: unknown appearance of focal anterior contraction versus fibroid. Patient states no additional discomfort. IMPRESSION: 1. Single viable intrauterine is noted above. [facility], , 12/11/2024 2:53 PM
== END | disposition home or self-care (01) ==
LOC: RADUSWWP 13:31
DX: Z34.91 Encounter for supervision of normal pregnancy, unspecified, first trimester (principal); Z3A.12 12 weeks gestation of pregnancy
CPT/HCPCS: 76801

== ENCOUNTER 2024-12-19 00:47 | Emergency (ER) | payer OTHER ==
[2024-12-19 00:53] VITALS: RESP 18
[2024-12-19] MEDS: ONDANSETRON 4 MG/2 ML VIAL IVP STA (01:18)
[2024-12-19] MEDS: SODIUM CHLORIDE 0.9% 1,000 ML IV SCH (01:19)
[2024-12-19] MEDS: ACETAMINOPHEN TAB 325 MG TAB PO STA (01:23)
[2024-12-19 01:25] LABS: Basophils # (A) 0.02 10*3/uL (0.00-0.10); Basophils % (A) 0.3 %; Eosinophils # (A) 0.06 10*3/uL (0.04-0.35); Eosinophils % (A) 0.8 %; HCT 37.3 % (37.2-46.3); HGB 12.7 g/dL (12.0-15.0); Lymphocytes # (A) 1.11 10*3/uL (0.90-5.00); Lymphocytes % (A) 14.0 %; MCH 31.2 pg (27.0-32.0); MCHC 34.0 g/dL (32.0-37.0); MCV 91.6 fL (80.0-97.0); Monocytes # (A) 0.47 10*3/uL (0.20-1.00); Monocytes % (A) 5.9 %; Neutrophils # (A) 6.23 10*3/uL (1.80-7.70); Neutrophils % (A) 78.7 %; Platelet Count 230 10*3/uL (140-440); RBC 4.07 10*6/uL (4.10-5.20); RDW 13.5 % (11.5-14.5); WBC 7.91 10*3/uL (4.50-10.00)
[2024-12-19 01:38] LABS: ALT 116 U/L (4-34); AST 45 U/L (14-36); African American GFR (CKD) >90 (>60 ml/min/1.73 sqM); Albumin 4.0 g/dL (3.5-5.0); Alkaline Phosphatase 85 U/L (38-126); Anion Gap 12 mmol/L; Blood Urea Nitrogen 4 mg/dL (7-17); Calcium 9.7 mg/dL (8.4-10.2); Carbon Dioxide 25 mmol/L (22-30); Chloride 102 mmol/L (98-107); Glucose 83 mg/dL (74-99); Non-African American GFR(CKD) >90 (>60 ml/min/1.73 sqM); Potassium 3.8 mmol/L (3.5-5.1); Sodium 139 mmol/L (137-145); Total Protein 6.8 g/dL (6.3-8.2)
--- NOTE | 2024-12-19 02:16 | ED ---
General Adult HPI - General Chief complaint: Nausea/Vomiting/Diarrhea Stated complaint: NV Time Seen by Provider: 12/19/24 00:56 Source: patient Mode of arrival: ambulatory Limitations: no limitations - History of Present Illness Initial comments: 24-year-old female currently 13 weeks presenting with chief complaint of nausea and vomiting. Patient has had issues with nausea and vomiting all throughout her . G1, P0. No pelvic pain or vaginal bleeding. She only takes Zofran at home for this, however she ran out and was unable to get in touch with her doctor's office for refill. No fever. She has some upper abdominal discomfort which she attributes to the vomiting. No chest pain or difficulty breathing. - Related Data Home Medications Medication Instructions Recorded Confirmed FLUoxetine HCL [PROzac] 20 mg PO HS 09/29/14 02/06/20 metFORMIN HCL ER [Glucophage XR] 500 mg PO HS 01/02/19 02/06/20 Previous Rx's Medication Instructions Recorded ALPRAZolam [Xanax] 0.5 mg PO BID PRN #6 tablet 02/06/20 Omeprazole [PriLOSEC] 40 mg PO DAILY #14 cap 03/20/20 Ondansetron Odt [Zofran Odt] 4 mg PO Q8HR PRN #10 tab 03/20/20 Cephalexin [Keflex] 500 mg PO Q6HR 10 Days #40 cap 02/03/21 Sulfamethox-Tmp 800-160Mg [Bactrim 1 tab PO Q12HR #20 tab 02/03/21 DS 800-160 mg] Ondansetron [Zofran ODT] 4 mg PO Q8HR PRN #15 tab 04/13/21 Ibuprofen [Motrin] 600 mg PO Q6HR PRN #30 tab 02/11/23 methylPREDNISolone Dose Pack 4 mg PO DIRECTED #1 packet 02/11/23 [Medrol Dose Pack] Cyclobenzaprine [Flexeril] 10 mg PO TID PRN #15 tab 05/31/23 Nitrofurantoin Monohyd/M-Cryst 100 mg PO Q12HR #14 cap 10/26/24 [Macrobid] Ondansetron Odt [Zofran Odt] 4 mg PO Q8HR PRN #10 tab 10/26/24 Doxylamine Succinate/Vit B6 1 tab PO TID PRN #24 tab 10/28/24 [E[address]ardo Dr 10-10 mg Tablet] Prochlorperazine Suppository 25 mg RECTAL BID #12 supp 10/30/24 [Compazine] Prochlorperazine [Compazine] 10 mg PO Q6H #28 tab 10/30/24 Ondansetron Odt [Zofran Odt] 4 mg PO Q8HR PRN #10 tab 11/14/24 Imm-Ojik-Qriun Acid 1 each PO DAILY #30 cap 11/14/24 [-U Capsule] Pyridoxine HCl (Vitamin B6) 10 mg PO BID PRN #15 tab 11/14/24 [Vitamin B-6] Ondansetron Odt [Zofran Odt] 4 mg PO Q8HR PRN #20 tab 12/19/24 Allergies Allergy/AdvReac Type Severity Reaction Status Date / Time sertraline HCl [From Zoloft] Allergy Rash/Hives/ Verified 12/19/24 00:53 SOB Review of Systems ROS Statement: Those systems with pertinent positive or pertinent negative responses have been documented in the HPI. ROS Other: All systems not noted in ROS Statement are negative. Past Medical History Past Medical History: Asthma, GERD/Reflux, Sleep Apnea/CPAP/BIPAP Additional Past Medical History / Comment(s): bladder cyst -polycystic ovarian syndrome-ON METFORMIN, History of Any Multi-Drug Resistant Organisms: MRSA Date of last positivie culture/infection: 2012 MDRO Source:: right leg Past Surgical History: Adenoidectomy, Cholecystectomy, Tonsillectomy Additional Past Surgical History / Comment(s): ovarian cyst, pain procedures, Past Anesthesia/Blood Transfusion Reactions: Postoperative Nausea & Vomiting (PONV) Past Psychological History: ADD/ADHD, Anxiety, Depression Smoking Status: Former smoker Past Alcohol Use History: Occasional Past Drug Use History: Marijuana - Past Family History Father Family Medical History: Diabetes Mellitus, Eye Disorder, Hyperlipidemia Mother Family Medical History: Asthma, Hypertension, Pneumonia, Thyroid Disorder Additional Family Medical History / Comment(s): Anxiety, depression Brother(s) Family Medical History: Asthma Additional Family Medical History / Comment(s): 2 brothers with asthma General Exam Limitations: no limitations General appearance: alert, in no apparent distress Head exam: Present: atraumatic, normocephalic, normal inspection Eye exam: Present: normal appearance, EOMI Neck exam: Present: normal inspection. Absent: meningismus Respiratory exam: Present: normal lung sounds bilaterally. Absent: respiratory distress, wheezes, rales, rhonchi, stridor Cardiovascular Exam: Present: regular rate, normal rhythm, normal heart sounds. Absent: systolic murmur, diastolic murmur, rubs, gallop, clicks GI/Abdominal exam: Present: soft. Absent: distended, tenderness, guarding, rebound, rigid Neurological exam: Present: alert, oriented X3 Psychiatric exam: Present: normal affect, normal mood Skin exam: Present: warm, dry, normal color Course Vital Signs 12/19/24 12/19/24 00:50 02:45 Temperature 97.9 F 97.7 F Pulse Rate 70 79 Respiratory 18 18 Rate Blood Pressure 102/67 110/79 O2 Sat by Pulse 100 98 Oximetry Medical Decision Making - Medical Decision Making Was pt. sent in by a medical professional or institution (, PA, CRANE CREW SUPERVISOR, urgent care, hospital, or jail...) When possible be specific @ -No Did you speak to anyone other than the patient for history (EMS, parent, family, police, friend...)? What history was obtained from this source @ -No Did you review nursing and triage notes (agree or disagree)? Why? @ -I reviewed and agree with nursing and triage notes Were old charts reviewed (outside hosp., previous admission, EMS record, old EKG, old radiological studies, urgent care reports/EKG's, jail records)? Report findings @ -No old charts were reviewed Differential Diagnosis (chest pain, altered mental status, abdominal pain women, abdominal pain men, vaginal bleeding, weakness, fever, dyspnea, syncope, headache, dizziness, GI bleed, back pain, seizure, CVA, palpatations, mental health, musculoskeletal)? @ -Differential includes hyperemesis gravidarum, gastroenteritis, constipation, bowel obstruction, gastroparesis, not an all-inclusive list EKG interpreted by me (3pts min.). @ -As above X-rays interpreted by me (1pt min.). @ -None done CT interpreted by me (1pt min.). @ -None done U/S interpreted by me (1pt. min.). @ -None done What testing was considered but not performed or refused? (CT, X-rays, U/S, labs)? Why? @ -None What meds were considered but not given or refused? Why? @ -None Did you discuss the management of the patient with other professionals (professionals i.e. , PA, CRANE CREW SUPERVISOR, lab, RT, psych nurse, social worker psychiatric, rn women services, teacher, court registry officer, outsole caser)? Give summary @ -No Was smoking cessation discussed for >3mins.? @ -No Was critical care preformed (if so, how long)? @ -No Were there social determinants of health that impacted care today? How? (Homelessness, low income, unemployed, alcoholism, drug addiction, transportation, low edu. Level, literacy, decrease access to med. care, snf, rehab)? @ -No Was there de-escalation of care discussed even if they declined (Discuss DNR or withdrawal of care, Hospice)? DNR status @ -No What co-morbidities impacted this encounter? (DM, HTN, Smoking, COPD, CAD, Cancer, CVA, ARF, Chemo, Hep., AIDS, mental health diagnosis, sleep apnea, m orbid obesity)? @ -None Was patient admitted / discharged? Hospital course, mention meds given and route, prescriptions, significant lab abnormalities, going to OR and other pertinent info. @ -24-year-old female currently 13 weeks presenting chief complaint of nausea and vomiting. No pelvic pain or vaginal bleeding. heart tones auscultated by my attending Dr. Almanzar determined to be about 140 bpm. Lab work requires no immediate action. She received Zofran and IV fluids reports she feels much better. Provided with Zofran for home. Follow-up with PCP. Report back to ER with any new or worsening symptoms. Discussed return parameters and answered all questions. Patient conveyed verbal understanding and agreed to the plan. I discussed this case in detail with my attending Dr. Almanzar Undiagnosed new problem with uncertain prognosis? @ -No Drug Therapy requiring intensive monitoring for toxicity (Heparin, Nitro, Insulin, Cardizem)? @ -No Were any procedures done? @ -No Diagnosis/symptom? @ -Nausea and vomiting in Acute, or Chronic, or Acute on Chronic? @ -Acute Uncomplicated (without systemic symptoms) or Complicated (systemic symptoms)? @ -Uncomplicated Side effects of treatment? @ -No Exacerbation, Progression, or Severe Exacerbation? @ -No Poses a threat to life or bodily function? How? (Chest pain, USA, LA, pneumonia, PE, COPD, DKA, ARF, appy, cholecystitis, CVA, Diverticulitis, Homicidal, Suicidal, threat to staff... and all critical care pts) @ -Unlikely - Lab Data Result diagrams: 12/19/24 01:12 12/19/24 01:12 Lab Results 12/19/24 12/19/24 Range/Units 01:12 01:12 WBC 7.91 (4.50-10.00) 10*3/uL RBC 4.07 L (4.10-5.20) 10*6/uL Hgb 12.7 (12.0-15.0) g/dL Hct 37.3 (37.2-46.3) % MCV 91.6 (80.0-97.0) fL MCH 31.2 (27.0-32.0) pg MCHC 34.0 (32.0-37.0) g/dL Plt Count 230 (140-440) 10*3/uL MPV 9.7 (9.5-12.2) fL Immature Gran % (Auto) 0.3 % Neutrophils % 78.7 % Lymphocytes % 14.0 % Monocytes % 5.9 % Eosinophils % 0.8 % Basophils % 0.3 % Immature Gran # 0.02 (0.00-0.04) 10*3/uL Neutrophils # 6.23 (1.80-7.70) 10*3/uL Lymphocytes # 1.11 (0.90-5.00) 10*3/uL Monocytes # 0.47 (0.20-1.00) 10*3/uL Eosinophils # 0.06 (0.04-0.35) 10*3/uL Basophils # 0.02 (0.00-0.10) 10*3/uL Sodium 139 (137-145) mmol/L Potassium 3.8 (3.5-5.1) mmol/L Chloride 102 (98-107) mmol/L Carbon Dioxide 25 (22-30) mmol/L Anion Gap 12 mmol/L BUN 4 L (7-17) mg/dL Creatinine 0.44 L (0.52-1.04) mg/dL Est GFR (CKD-EPI)AfAm >90 (>60 ml/min/1.73 sqM) Est GFR (CKD-EPI)NonAf >90 (>60 ml/min/1.73 sqM) Glucose 83 (74-99) mg/dL Calcium 9.7 (8.4-10.2) mg/dL Total Bilirubin 0.7 (0.2-1.3) mg/dL AST 45 H (14-36) U/L ALT 116 H (4-34) U/L Alkaline Phosphatase 85 (38-126) U/L Total Protein 6.8 (6.3-8.2) g/dL Albumin 4.0 (3.5-5.0) g/dL Disposition Clinical Impression: Nausea and vomiting during Disposition: HOME SELF-CARE Condition: Good Instructions (If sedation given, give patient instructions): Nausea and Vomiting in (ED) Additional Instructions: Follow-up with your IMAGE EDITOR. Report back to ER with any new or worsening symptoms. Prescriptions: Ondansetron Odt [Zofran Odt] 4 mg PO Q8HR PRN #20 tab PRN Reason: Nausea Is patient prescribed a controlled substance at d/c from ED?: No Referrals: Adama Valles [Primary Care Provider] - 1-2 days Time of Disposition: 02:16
[2024-12-19 02:46] VITALS: BP 110/79; PULSE 79; TEMP 97.7
== END 2024-12-19 02:47 | disposition home or self-care (01) ==
LOC: EC 00:47
DX: O21.9 Vomiting of pregnancy, unspecified (principal); Z87.891 Personal history of nicotine dependence; Z88.8 Allergy status to other drugs, medicaments and biological substances; Z3A.13 13 weeks gestation of pregnancy
CPT/HCPCS: 36415; 80053; 85025; 99284; 96374; 96361; J2405